=== PATIENT | male | born 1960 | race African-American/Black ===

== ENCOUNTER 2019-02-22 18:18 | Inpatient (IN) ==
[2019-02-22] MEDS ORDERED: LASIX IV ONE (20:11)
[2019-02-22] MEDS ORDERED: CARDIZEM IV ONE ×2 (20:11→21:00)
[2019-02-22] MEDS ORDERED: ROCEPHIN 1 GM in NS 50 ML IV ONE (20:13)
[2019-02-22 20:47] LABS: URINE SOURCE CATH
[2019-02-22 20:50] LABS: BASO# 0.01 X1000 (0.0-0.2); BASO% 0.1 % (0.0-0.8); EOS# 0.03 X1000 (0.0-0.7); EOS% 0.2 % (0.0-10.0); HEMATOCRIT 46.5 % (42.0-52.0); HEMOGLOBIN 15.9 g/dL (14.0-18.0); IMM GRAN# 0.08 X1000 (0.0-0.04); IMM GRAN% 0.5 % (0.0-0.5); LYMPH# 2.08 X1000 (1.2-3.4); MCH 27.8 PG (27-31); MCHC 34.2 g/dL (33-37); MCV 81.3 FL (81-99); MONO# 0.95 X1000 (0.11-0.59); MONO% 6.4 % (1.7-9.3); MPV 11.9 FL (7.4-10.4); NEUT# 11.76 X1000 (1.4-6.5); NEUT% 78.8 % (42.2-75.2); PLT 246 X1000 (130-400); RBC 5.72 XMIL (4.7-6.1); RDW 16.6 % (11.5-14.5); WBC 14.91 X1000 (4.8-10.8)
[2019-02-22 20:52] LABS: BILIRUBIN URINE NEGATIVE (NEGATIVE); BLOOD URINE MODERATE (NEGATIVE); COLOR YELLOW; GLUCOSE URINE NEGATIVE (NEGATIVE); KETONE URINE NEGATIVE (NEGATIVE); LEUKOCYTES URINE LARGE (NEGATIVE); NITRITE URINE POSITIVE (NEGATIVE); PROTEIN URINE 30 mg/dL (NEGATIVE); SP GRAVITY URINE 1.014; TURBIDITY URINE HAZY (CLEAR); UROBILINOGEN URINE 2 mg/dL (NORMAL)
[2019-02-22 20:53] LABS: UR EPITHELIAL CELLS <10 /HPF (<10); URINE BACTERIA 4+ /HPF; URINE WBC TNTC /HPF (<10)
[2019-02-22 21:03] LABS: AGAP 14; ALB/GLOB RATIO 0.8; ALBUMIN 3.1 g/dL (3.5-5.0); ALKALINE PHOSPHATASE 340 U/L (32-122); BUN 23 mg/dL (8-22); CALCIUM 8.7 mg/dL (8.8-10.2); CHLORIDE 100 mmol/L (98-107); COSMO 276; CREATININE 1.2 mg/dL (0.7-1.2); ESTIMATED GFR > 60; GLUCOSE 109 mg/dL (70-104); GOT 44 U/L (10-34); GPT 44 U/L (10-44); POTASSIUM 4.7 mmol/L (3.5-5.1); SODIUM 136 mmol/L (136-145); TCO2 22 mmol/L (25-35); TOTAL BILIRUBIN 2.85 mg/dL (0.20-1.00); TOTAL PROTEIN 6.8 g/dL (6.3-8.3)
[2019-02-22] MEDS ORDERED: NITROGLYCERIN TOP ONE (21:28)
[2019-02-22] MEDS ORDERED: NITROGLYCERIN ONE (21:28)
--- NOTE | 2019-02-22 22:02 | PROVIDER DOCUMENTATION ---
This chart was entered by Joyce Banuelos Scribe, acting as scribe for Amy Mccollum MD. HPI-General Adult - General Chief Complaint: Edema Stated Complaint: LEAKING FLUIDS Time Seen by Provider: 02/22/19 19:23 Source: patient Allergies/Adverse Reactions: Patient Allergies Allergy/AdvReac Type Severity Reaction Status Date / Time No Known Allergies Allergy Verified 02/22/19 21:53 - History of Present Illness -Gen Adult Nature of Presenting Problems: Pt is 58/M presenting to ED w/ Edema to both legs since Sep. Pt has been living in [place] and just flew back. Pt sts that he has pain in both legs with ambulation. He was dx w/ CHF, but does not know the cause. Pt does have medications, but does not know what they are, because everything is written in [place]ian, he does know that he takes a lasix. report SOB, orthopnea 4 pillows. denies chest pain or dizziness. Location of Pain/Injury: reports: lower extremity. denies: chest Pain Radiation: reports: no radiation Quality of Pain: reports: aching Severity: reports: moderate Onset/Duration: reports: gradual Timing: reports: still present, getting worse Context/Activities at Onset: reports: none Modifying Factors: improves with: nothing Associated Symptoms: denies: chest pain, cough, nausea, shortness of breath, vomiting Similar Symptoms Previously?: Yes Recently seen or treated by another doctor?: No Review of Systems - Adult - REVIEW OF SYSTEMS - ADULT Constitutional: denies: chills, fever Eyes: reports: no symptoms reported Ears, Nose, Mouth & Throat: reports: no symptoms reported Cardiovascular: reports: see HPI Respiratory: reports: dyspnea on exertion, shortness of breath Gastrointestinal: reports: no symptoms reported Genitourinary: reports: no symptoms reported Musculoskeletal: reports: no symptoms reported Integumentary: reports: no symptoms reported Neurological: reports: no symptoms reported. denies: dizziness/vertigo, headache/migraines Psychiatric: reports: no symptoms reported Past History - Adult - PAST MEDICAL HISTORY-ADULT Review of Records: reports: Old Records Reviewed, Nursing Assessment Review, Medications Reviewed, Social history reviewed & non-contributory. Cardiovascular: reports: CHF, HTN Neurological: reports: denies history Psychiatric: reports: denies history Endocrine/Immune: reports: denies history Other Conditions: reports: denies history - SOCIAL HISTORY Smoking: denies, non-smoker Substance Use: none/never Alcohol Use Frequency: never Living Situation: family Physical Exam-General - PHYSICAL EXAM-ADULT Initial Vital Signs Reviewed: Yes - CONSTITUTIONAL General Appearance: alert, mild distress - EYES Eyes: PERRL/EOMI, pink conjunctivae - HEAD, EARS, NOSE, MOUTH & THROAT HENMT: normocephalic/atraumatic, moist mucous membranes, normal ENT inspection - NECK Neck: full range of motion, supple - RESPIRATORY Respiratory: lungs clear, normal breath sounds - CARDIOVASCULAR Cardiovascular: tachycardia, irregularly irregular - GASTROINTESTINAL (ABDOMEN) Abdominal Exam: normal bowel sounds, non tender, soft - MUSCULOSKELETAL Extremity: normal range of motion, non-tender, normal gait, pedal edema, other (3+ Edema,up to lower ABD) - SKIN Integumentary: normal color, other (lesion RLE with slight discharge) - NEUROLOGIC Neurologic: grossly normal - PSYCHIATRIC Psych/Mental Status: normal thought content, normal thought process, oriented x 3 Progress - PLAN OF CARE/RESULTS Progress/Plan/Lab Results: Vital Signs - 8 hr 02/22/19 18:32 Temperature 97.4 F L Pulse Rate 70 Respiratory Rate 20 Blood Pressure 115/83 O2 Sat by Pulse Oximetry 98 Orders Category Date Time Status BNP [PRO B-NATRIURETIC PEPTIDE] Stat Lab 02/22/19 20:11 Uncollected CBC WITH ELECTRONIC DIFF [HEME] Stat Lab 02/22/19 20:11 Uncollected COMPREHENSIVE METABOLIC PANEL [CHEM] Stat Lab 02/22/19 20:11 Uncollected LACTATE, PLASMA [CHEM] Stat Lab 02/22/19 20:11 Uncollected Diltiazem [Cardizem] Med 02/22/19 20:11 Discontinued 20 mg IV NOW ONE Furosemide [Lasix] Med 02/22/19 20:11 Discontinued 40 mg IV NOW ONE Cardizem x2 given and HR improved from 140s to 90s. Rocephin started to cover for UTI and possbile wound infection. Laisx IV given for fluid overload. will admit for further management. Result Diagrams: 02/22/19 20:15 02/22/19 20:15 - EKG 1 Time of EKG reading by physician:: 20:19 EKG Read and Signed by:: Amy Mccollum EKG Interpretation (*Must complete 3 of following elements*): Abnormal (Atrial fibrillation with rapid ventricular response with premature ventricular or aberrantly conducted complexes, Possible inferior infarct, age undetermined. Cannot rule out Anterior infarct, age undetermined, Abnormal ECG) Rate: 139 Rhythm: Atrial fibrillation [place]: normal QRS: normal - CONSULTS/PCP/HOSPITALIST Notification #1 *Consult/PCP/Hospitalist*: Dr. Shrestha Time Discussed: 21:38 (Pt admitted for CHF exacerbation) Consult Disposition: Admit Departure - Departure Date of Disposition Decision: 02/22/19 Time of Disposition Decision: 21:38 DIAGNOSIS: Atrial fibrillation with RVR, Skin infection CHF exacerbation Qualifiers: Heart failure type: unspecified Qualified Code(s): I50.9 - Heart failure, unspecified UTI (urinary tract infection) Qualifiers: Urinary tract infection type: site unspecified Hematuria presence: with hem aturia Qualified Code(s): N39.0 - Urinary tract infection, site not specified; R31.9 - Hematuria, unspecified Disposition: ADMITTED INPATIENT 09 Certified Medical Emergency: Emergent Condition: Serious Referrals and Follow-Ups: None,PCP [Primary Care Provider] - - Critical Care Note This patient required my direct & personal management of CC.: No Attestation - Physician/ WILBERT Attestation Patient care was provided by Advanced Practice Provider:: No The physician spent face to face time with patient:: Yes Advanced Practice Provider documentation review:: Supervising physician onsite and consulted in the evaluation and care of this patient. The physician did have a face to face encounter with the patient. This chart was documented by the indicated scribe, (Joyce Banuelos Scribe) and accurately reflects the services I performed and decisions made by me, Amy Soto MD, as attested by the provider's signature.
[2019-02-22 22:25] LABS: ALLEN TEST YES; BE -0.6 mmoll (-3.0-3.0); BLOOD TYPE ARTERIAL; HCO3-(ACT) 24.4 mmoll (20.0-26.0); METHB 1.3 % (0.0-1.5); O2(CT) 21.4 mL/dL (15.0-23.0); O2HB 96.3 % (95.0-99.0); PCO2(98.6) 29 mmHg (35-45); PO2(98.6) 113 mmHg (60-100); SAMPLE BLOOD; SAO2 99.7 % (95.0-100.0); THB 15.7 g/dL (11.5-17.4); pH(98.6) 7.48 (7.35-7.45)
[2019-02-22 22:26] LABS: MODALITY CANNULA
--- NOTE | 2019-02-23 00:14 | HISTORY AND PHYSICAL ---
PRIMARY CARE PHYSICIAN: None, was in [place]. CHIEF COMPLAINT: Lower extremity edema. HISTORY OF PRESENTING ILLNESS: A 58-year-old male with a history of CHF who apparently had been living in [place]. He was being treated there. However, he did not know exactly what he was being treated for except that he had heart failure. Subsequently, patient took a plane from [facility] to the [facility] and immediately after he landed came to the emergency department. In the ED,he was evaluated. He seemed to be in heart failure and also was in atrial fibrillation. Due to these presenting symptoms, he will need admission for further management. The patient is a poor historian. However, at the time of my examination he had denied any headache, fever, chills, chest pain, hemoptysis, but complained of lower extremity edema and shortness of breath. PAST MEDICAL HISTORY: CHF. PAST SURGICAL HISTORY: Hernia repair, jaw surgery. ALLERGIES: No known drug allergies. CURRENT MEDICATIONS: He does not recall and nursing staff will reconcile. SOCIAL HISTORY: No history of smoking. Admits to social alcohol use. Denies any illicit drug use. FAMILY HISTORY: No history of coronary disease. REVIEW OF SYSTEMS: Fourteen point review of systems as listed in HPI. Other systems negative. PHYSICAL EXAMINATION: GENERAL: Cooperative, friendly male. He is resting more comfortably now. VITAL SIGNS: Temperature 97.4 degrees, pulse 70, respirations 20, blood pressure 115/83. HEENT: Atraumatic, normocephalic. Extraocular movements intact. PERRLA. NECK: No masses. CHEST: Bibasilar rales. CARDIOVASCULAR: Regular rate and rhythm. ABDOMEN: Soft, obese, positive bowel sounds. EXTREMITIES: +3 edema. NEUROLOGIC: He is awake, alert, oriented x3. GENITOURINARY: No bladder distention. SKIN: Warm. LABORATORIES AND STUDIES: UA shows nitrite positive and +4 bacteria. WBCs 14.91, hemoglobin 15.9, hematocrit 46.5, platelets 246,000. Sodium 136, potassium 4.7, chloride 100, CO2 of 22, BUN is 23, creatinine is 1.2, glucose 109. ProBNP is 5090. ASSESSMENT: A 58-year-old male with a history of congestive heart failure who apparently flew from [place] to seek treatment for his lower extremity edema. He was evaluated in the emergency department. He was suspected to be in heart failure and also he was in atrial fibrillation. He was treated with IV Cardizem and he will require admission for further management. 1. Acute congestive heart failure exacerbation, unspecified. 2. Atrial fibrillation with rapid ventricular response. 3. Urinary tract infection. PLAN: 1. We will admit patient to [facility]. 2. Continue to monitor patient on telemetry. Continue with diuresis with Lasix. 3. We will check echocardiogram and consult elevator constructor electric. 4. We will use Cardizem as needed. 5. We will start patient on empiric antibiotics and check urine cultures. 6. Put patient on DVT prophylaxis with heparin. 7. We will continue to follow, and reassess and make further recommendation based on patient's clinical course. cc: Rich Shrestha MD MTDD
[2019-02-23] MEDS ORDERED: HEPARIN SUBQ SCH (01:23)
[2019-02-23 03:56] LABS: INR 1.25; PROTIME 16.7 Seconds (11.0-16.0)
[2019-02-23 03:57] LABS: PTT 29.7 Seconds (22.3-41.8)
[2019-02-23] MEDS: CARDIZEM 125 MG/D5W 125 MG/125 ML IVPB IV SCH ×2 (04:18→15:26)
[2019-02-23 06:04] LABS: BASO# 0.02 X1000 (0.0-0.2); BASO% 0.1 % (0.0-0.8); EOS# 0.02 X1000 (0.0-0.7); EOS% 0.1 % (0.0-10.0); HEMATOCRIT 44.7 % (42.0-52.0); HEMOGLOBIN 15.3 g/dL (14.0-18.0); IMM GRAN# 0.09 X1000 (0.0-0.04); IMM GRAN% 0.5 % (0.0-0.5); LYMPH# 2.17 X1000 (1.2-3.4); LYMPH% 11.3 % (20.5-51.1); MCH 28.4 PG (27-31); MCHC 34.2 g/dL (33-37); MCV 82.9 FL (81-99); MONO# 0.91 X1000 (0.11-0.59); MONO% 4.7 % (1.7-9.3); MPV 11.6 FL (7.4-10.4); NEUT# 15.99 X1000 (1.4-6.5); NEUT% 83.3 % (42.2-75.2); PLT 191 X1000 (130-400); RBC 5.39 XMIL (4.7-6.1); RDW 16.6 % (11.5-14.5)
[2019-02-23 06:29] LABS: AGAP 13; BUN 22 mg/dL (8-22); CALCIUM 8.5 mg/dL (8.8-10.2); CHLORIDE 102 mmol/L (98-107); COSMO 280; ESTIMATED GFR > 60; GLUCOSE 152 mg/dL (70-104); POTASSIUM 4.1 mmol/L (3.5-5.1); SODIUM 137 mmol/L (136-145); TCO2 22 mmol/L (25-35)
--- NOTE | 2019-02-23 07:25 | Diag Imaging Result Doc PS360 ---
EXAM: CHEST-1 VIEW 02/22/2019 HISTORY: SEPSIS PROTOCOL TECHNIQUE: AP portable at 2203 COMMENT: There is cardiomegaly. There is alveolar opacity in the right lower lobe with blunting of the right costophrenic angle. There are no previous studies. IMPRESSION: Cardiomegaly. Right lower lobe pneumonia. Right pleural effusion. Electronically signed by Anastacio Tracy 02/23/2019 7:23 AM
[2019-02-23] MEDS: LASIX IV SCH ×2 (09:18→20:22)
[2019-02-23] MEDS ORDERED: LOVENOX 1 MG/KG SUBQ SCH (12:00)
--- NOTE | 2019-02-23 12:15 | CARDIOLOGY CONSULTATION ---
DATE: 02/23/2019 REQUESTING PHYSICIAN: Hospitalist Service REASON FOR CONSULTATION: Congestive heart failure, atrial fibrillation. Chief complaint: dyspnea, swelling. HISTORY OF PRESENT ILLNESS: Mr. Dunbar is a very pleasant 58-year-old black gentleman who has come from [facility] seeking medical assistance. 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 He says that about 09/2018 and when he was doing his usual exercise routine, he had an episode of significant discomfort in the upper abdomen epigastric area, and he basically collapsed on the ground. He ended up being admitted to the hospital where they initiated treatment for him. He, over the course of the months, has developed swelling of his lower extremities, and this has gotten progressively worse. He was taking a number of medications which we have been able to figure out using the it application development manager apps available to the nursing staff. At any rate, he has been treated for heart failure, and he did not seem to get better, and that is why he decided to come back to the [facility] for evaluation. PAST SURGICAL HISTORY: Positive for UPPP in the past. He has been diagnosed with sleep apnea syndrome. At some point, they have found that he is hypertensive. Also, he says that his weight has fluctuated over the years. When he was at his very best, his weight was 154 pounds, and now he is about 260 pounds. SOCIAL HISTORY: He has been to his for 30 years. He has 4 children living in [facility]. FAMILY HISTORY: He is 1 of a total of 6 siblings. Nobody has any significant history of heart disease. Mother is in the room with him. She is not a heart patient. Father did not suffer heart attack. HOME MEDICATIONS: From what we have been able to figure out included enalapril 2.5 daily, furosemide 40 daily, Levaquin 500 daily and spironolactone 25 mg daily. REVIEW OF SYSTEMS: Lately he has developed swelling and also skin breakdown in the leg. His legs hurt. He is weak. He is really very short of breath and very limited to perform physical activity. He has not experienced chest pains. No hearing or visual problems. No genitourinary disorder. No gastrointestinal issues. No musculoskeletal problems. No psychiatric or neurological issues other than the original episode of syncope in 09/2018. No hematological issues. No history of cancer. PHYSICAL EXAMINATION: Blood pressure is 108/81, temperature 98 degrees, pulse 101, respirations 16. He is awake, alert, oriented, in no distress. HEENT: Some prominence of jugular veins. Chest: Diminished breath sounds diffusely. Heart sounds are irregularly irregular without a gallop or murmur. Abdomen is distended with ascites. Extremities showed 3 to 4 plus edema. He has anasarca edema. Neurologic: Follows commands, moves all 4 extremities. DIAGNOSTIC DATA: His blood work shows sodium 137, potassium 4.1, BUN is 22, creatinine 1.0, magnesium 2.0. His white cell count is 19,200, hemoglobin 15.3, hematocrit 44.7. His urinalysis is abnormal with moderate blood, positive nitrites, too numerous to count WBCs. EKG shows atrial fibrillation with a rate of 97 beats per minute with PVCs and surprisingly low voltage with diffuse T wave abnormality. His chest x-ray on admission shows cardiomegaly, right lower lobe pneumonia. IMPRESSION: 1. The patient presents with what appears to be more than likely systolic and diastolic heart failure, chronic. 2. Persistent atrial fibrillation. 3. Abnormal liver function tests with significant elevation of alkaline phosphatase and bilirubin. That suggests a space occupying lesion. 4. Abnormal urinalysis. 5. Obesity. 6. History of sleep apnea syndrome. RECOMMENDATIONS: At this point in time, we will get an echocardiogram. We will do ultrasound of the legs. We really need to investigate for possible cardiomyopathy secondary to infiltrative disease like TTR amyloid or hemochromatosis or anything along those lines. I will order blood work, and we will take if from there. Further advice will be forthcoming. Thank you for the opportunity to participate in his evaluation. cc: Kareem Salazar MD [facility] CENTERNadia
[2019-02-23] MEDS: LOVENOX SUBQ SCH (12:45)
[2019-02-23] MEDS ORDERED: LANOXIN PO ONE (13:39)
[2019-02-23] MEDS ORDERED: PRINIVIL PO ONE (13:42)
[2019-02-23] MEDS ORDERED: ALDACTONE PO ONE (13:45)
--- NOTE | 2019-02-23 14:29 | PROGRESS NOTE ---
DATE: 02/23/2019 Today Mr. Dunbar refers to be doing fairly the same. Still has some shortness of breath, but no chest pain. OBJECTIVELY: Vital Signs: Blood pressure is 131/86, pulse of 85, respirations 16, temperature 98.5 degrees. General: Mr. Dunbar is a 58-year-old gentleman. He is in bed, no distress. HEENT: Mucosa is pink and moist. Anicteric. Acyanotic. Neck: Supple. Positive JVD. Chest: Air entry is bilaterally reduced. There are wet crackles in both posterior lung dumont. Cardiovascular: Irregularly irregular. Rate seems to be controlled. There is positive S3. Abdomen: Soft, distended. There is a positive hepatojugular reflux and mildly tender hepatomegaly. Extremities: About 4+ pedal edema. DECK ENGINE OPERATOR: Patient is awake, alert, and oriented. LABORATORY DATA: WBC is 19.2. Chemistry is also reviewed. Uric acid is 10.9. C-reactive protein is 59.16. Lactate is slightly elevated and 2.9. Urinalysis showing a gram-negative daniel UTI. ASSESSMENT: 1. Anasarca, most likely secondary to congestive heart failure with reduced ejection fraction. We are still waiting for the echo. 2. Persistent atrial fibrillation. The patient presented with rapid ventricular response. The rate is better controlled. He was given diltiazem. However, because of the suspicion off systolic dysfunction, I think it will be reasonable to switch to digoxin and wait for further recommendation from Cardiology. 3. Newly diagnosed DVT in the left lower extremity. The patient is on therapeutic Lovenox. 4. Elevated plasma lactate level likely as a reflection of hypoperfusion because of the poor ejection fraction. The patient does have some cold lower extremities and I think he will probably benefit some from ionotropic therapy. We will however defer that to Cardiology. 5. Hyperuricemia. The patient has been started on allopurinol. 6. Questionable right lower lobe pneumonia. The patient is on antimicrobial therapy. 7. Gram-negative daniel urinary tract infection. We will continue with ceftriaxone. 8. History of hypertension, stable. So in general Mr. Dunbar has anasarca which we think is secondary to congestive heart failure, presumably with reduced ejection fraction. We are still waiting on the echo. He has been started on digoxin, lisinopril, and he is getting diuretic therapy. We have added spironolactone to enhance diuresis and also for the congestive heart failure. We will follow further recommendations from Cardiology. cc: Jase Mortensen MD
--- NOTE | 2019-02-23 15:08 | Diag Imaging Result Doc PS360 ---
EXAM: US ABDOMEN-COMPLETE 02/23/2019 HISTORY: abnormal LFT's TECHNIQUE: Abdominal ultrasound COMMENT: The study is technically suboptimal and the left upper quadrant including the left kidney and spleen are not well demonstrated. The visualized portions of the aorta and inferior vena cava are within normal limits. There is a right pleural effusion. There is sludge in the gallbladder. There is no evidence of biliary dilatation the common bile duct measuring less than 3 mm. There is tenderness over the gallbladder. There is antegrade flow in the portal vein. The right kidney is without evidence of hydronephrosis or mass. The liver is slightly hyperechoic suggesting fatty change. IMPRESSION: Possibility of cholecystitis cannot be excluded. There is sludge in the gallbladder. Hepatic steatosis. Electronically signed by Anastacio Tracy 02/23/2019 3:06 PM
--- NOTE | 2019-02-23 15:27 | Diag Imaging Result Doc PS360 ---
EXAM: CT THORAX W/O CONTRAST 02/23/2019 HISTORY: abnormal Chest X Ray TECHNIQUE: This exam was performed using automated exposure control, adjustment of mA or kV according to patient size, and/or use of iterative reconstruction technique. COMMENT: There is a fairly large right pleural effusion. There is subcutaneous edema. There is atelectasis or pneumonia in the right lower lobe. There are calcified nodes in the right paratracheal and hilar regions. There is cardiomegaly. There is a small pericardial effusion. There are atherosclerotic calcifications in the thoracic aorta the ascending aorta is slightly distended to over 4.3 cm. There are calcifications in the left anterior descending artery. There are chronic posttraumatic changes in the right humerus. There is no evidence of acute bony abnormality. IMPRESSION: 1. Anasarca. 2. Large right pleural effusion. 3. Atelectasis versus pneumonia in the right lower lobe. Electronically signed by Anastacio Tracy 02/23/2019 3:24 PM
--- NOTE | 2019-02-23 17:48 | ECHO REPORT ---
ORDER DATE: 02/23/2019 INDICATION: CHF, atrial fibrillation. M-MODE MEASUREMENTS: Left ventricle end diastole: 3.1. Left ventricle end systole: 5.1. Posterior wall: 0.9. Interventricular septum: 1.1. Left atrium: 5.1. Aortic diameter: 2.9. SUMMARY OF 2-DIMENSIONAL IMAGIN. The left ventricle is enlarged. Global left ventricular systolic function is severely impaired. There appears to be akinesis of the inferior wall as well as the interventricular septum and the apex of the left ventricle. Global ejection fraction is somewhere in the neighborhood of 20%. There is evidence of an apical thrombus that appears to be somewhat mobile with a hypodense core. This mass measures 2.9 x 2.9 cm in maximum dimensions. 2. The left atrium is significantly dilated. 3. The mitral valve shows a moderate degree or regurgitation. The patient is in atrial fibrillation. 4. Pulsed wave Doppler of mitral inflow shows a single filling wave. 5. Diastolic function is presumably significantly impaired. It cannot be properly evaluated. 6. The pulmonic valve shows a moderate degree of regurgitation. 7. The pulmonary systolic pressure is estimated at 50 mmHg. The pulmonary diastolic pressure is estimated to be somewhere in the neighborhood of 30 mmHg. 8. The right atrium is also significantly dilated. The right ventricle is moderately enlarged. It appears to be mildly to moderately hypokinetic. 9. The aortic valve has 3 cusps. They open normally. Color flow mapping indicates a mild degree of regurgitation. 10.The tricuspid valve shows a moderate degree of regurgitation. Pulmonary systolic pressure, as I said, is estimated at 50 mmHg. 11.There is no pericardial effusion. 12.The study was clinically difficult. SUMMARY: This study shows: 1. Significantly impaired left ventricular systolic function with ejection fraction of 20% with evidence of an apical thrombus measuring 2.9 x 2.9 cm. 2. Pulmonary hypertension estimated at 50/30 mmHg. 3. Moderate degree of mitral and tricuspid regurgitation. 4. Mild degree of aortic regurgitation. 5. Significantly enlarged atria. The patient is in atrial fibrillation. Clinical correlation is strongly recommended. cc: MD Rich Meyer MD
[2019-02-23] MEDS ORDERED: ROCEPHIN 1 GM in NS 50 ML IV SCH (21:00)
[2019-02-23] MEDS: ZYLOPRIM PO SCH (21:26)
[2019-02-23] MEDS: COLCRYS PO SCH (21:26)
[2019-02-23] MEDS: PRINIVIL PO SCH (21:26)
[2019-02-24] MEDS: CARDIZEM 125 MG/D5W 125 MG/125 ML IVPB IV SCH (04:27)
[2019-02-24] MEDS: LOVENOX SUBQ SCH ×2 (05:18→18:30)
[2019-02-24 06:16] LABS: BASO# 0.01 X1000 (0.0-0.2); BASO% 0.1 % (0.0-0.8); EOS# 0.07 X1000 (0.0-0.7); EOS% 0.5 % (0.0-10.0); HEMATOCRIT 42.7 % (42.0-52.0); HEMOGLOBIN 14.5 g/dL (14.0-18.0); IMM GRAN# 0.06 X1000 (0.0-0.04); IMM GRAN% 0.4 % (0.0-0.5); LYMPH# 1.84 X1000 (1.2-3.4); LYMPH% 13.3 % (20.5-51.1); MCH 28.2 PG (27-31); MCV 82.9 FL (81-99); MONO# 0.54 X1000 (0.11-0.59); MONO% 3.9 % (1.7-9.3); MPV 11.5 FL (7.4-10.4); NEUT# 11.28 X1000 (1.4-6.5); NEUT% 81.8 % (42.2-75.2); PLT 218 X1000 (130-400); RBC 5.15 XMIL (4.7-6.1); RDW 16.5 % (11.5-14.5)
[2019-02-24 06:31] LABS: AGAP 11; ALBUMIN 2.6 g/dL (3.5-5.0); BUN 17 mg/dL (8-22); CALCIUM 8.4 mg/dL (8.8-10.2); CHLORIDE 101 mmol/L (98-107); COSMO 284; CREATININE 0.9 mg/dL (0.7-1.2); ESTIMATED GFR > 60; GLUCOSE 113 mg/dL (70-104); IRON SATURATION 11 %; PHOSPHORUS 2.6 mg/dL (2.7-4.5); POTASSIUM 3.6 mmol/L (3.5-5.1); SODIUM 141 mmol/L (136-145); TCO2 29 mmol/L (25-35); TIBC 213 ug/dL; TOTAL IRON 24 ug/dL (53-167); UNBOUND IRON 189 ug/dL (112-346)
[2019-02-24] MEDS: LASIX IV SCH ×2 (08:42→20:35)
[2019-02-24] MEDS: PRINIVIL PO SCH ×2 (08:42→20:35)
[2019-02-24] MEDS: LANOXIN PO SCH (08:42)
[2019-02-24] MEDS: APRESOLINE PO SCH ×3 (08:42→16:54)
[2019-02-24] MEDS: COLCRYS PO SCH ×2 (08:43→20:35)
[2019-02-24] MEDS: ISORDIL PO SCH ×3 (08:43→16:54)
[2019-02-24] MEDS: ZYLOPRIM PO SCH ×2 (08:43→20:35)
[2019-02-24] MEDS ORDERED: PRINIVIL PO SCH (09:00)
[2019-02-24] MEDS ORDERED: ALDACTONE PO SCH (09:00)
[2019-02-24] MEDS ORDERED: MERREM 1 GM in NS 50 ML IV SCH (09:15)
[2019-02-24 09:16] LABS: BANDS 2 % (0-1); LYMPHS 8 % (21-51); SEGS 90 % (42-75)
--- NOTE | 2019-02-24 13:37 | CARDIOLOGY PROGRESS NOTE ---
DATE: 02/24/2019 CHIEF COMPLAINT: Swelling, dyspnea. SUBJECTIVE: Mr. Dunbar is feeling somewhat better today. He is not having chest pain. Breathing is more comfortable. He is diuresing well. He is currently on furosemide 40 mg every 12 hours. OBJECTIVE: Blood pressure is 100/76, temperature 97.5, pulse 97, respirations 20. He is awake, alert and oriented, no distress. HEENT: Some jugular venous distention. Chest: Diminished breath sounds at the bases. Heart sounds are irregularly irregular. Abdomen: Distended, obese. He does have anasarca edema in both lower extremities. Neurologic: Follows commands. Moves all 4 extremities. DIAGNOSTIC DATA: He is growing E. coli in the urine, and he has gram-negative rods from the skin. Blood work shows sodium is 141, potassium 3.6, BUN is 17, creatinine 0.9. Albumin is down to 2.6. Phosphorus 2.6. Iron is 24, saturation is 11%. IMPRESSION: 1. The patient presented with anasarca edema, dyspnea, consistent with advanced congestive heart failure. Echocardiogram reveals that his ejection fraction is below 30% with an apical thrombus. He is really [place] Heart [employer] class 4. The etiology of his cardiomyopathy is unclear. It could be coronary or nonischemic. This has to be elucidated down the road. 2. Deep venous thrombosis of left leg. 3. Obesity. 4. History of sleep apnea syndrome. 5. Permanent or persistent atrial fibrillation. RECOMMENDATIONS: At this time, we will continue with basic heart failure management with lisinopril, spironolactone, digoxin, hydralazine, isosorbide dinitrate, furosemide. Because of elevated uric acid, we have added colchicine and allopurinol. We will see how things go. Eventually he is going to need a workup for ischemic heart disease including a myocardial perfusion study and probably and right and left heart catheterization. Because of the active blood clot in the leg and also the clot found in his heart, we have to keep him fully anticoagulated for a while. We have chosen enoxaparin 100 mg twice a day because we believe that dose is closer to his expected "dry" weight. Further advice will be forthcoming. cc: Kareem Salazar MD
--- NOTE | 2019-02-24 14:18 | PROGRESS NOTE ---
DATE: 02/24/2019 SUBJECTIVE: This morning, Mr. Dunbar refers to be doing well. He has been making adequate urine. Still has some residual shortness of breath. Denies any chest pain. Mother, sister, and then a niece were all at the bedside at the time of the encounter. OBJECTIVE: Vital Signs: Blood pressure is 100/76, pulse of 97, respirations are 20, temperature is 97.5 degrees, the patient is saturating 97% on 3 L. General Examination: Mr. Dunbar is a 58- year-old, -German male. He is in bed. No seemingly distressed. HEENT: Mucosa is pink and moist. Anicteric. Acyanotic. Neck: Supple. Positive JVD. Chest: Air entry is bilaterally reduced. There are still some crackles in the posterior lung dumont. Cardiovascular: Irregularly irregular, rate controlled. There is positive S3. GI: Abdomen is soft, it is distended. There is positive hepatojugular reflux and there is edema all around the lateral aspect of the abdominal wall. Extremities: About 4+ pedal edema. : Julio catheter is in place. 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 Laboratory Data: WBC is down to 13.80, hemoglobin is 14.5, platelet count of 218,000. Chemistry is also reviewed and it is completely unremarkable. So far, a wound culture on the left leg is showing gram-negative daniel. Blood cultures, two out of two, showing gram-negative daniel. Urine has shown ESBL E. coli. Imaging Studies that were done yesterday including an ultrasound of the abdomen shows possibility of cholecystitis cannot be excluded. There was sludge in the gallbladder. There is hepatic steatosis. A CT scan of the chest shows a large, right-sided pleural effusion. There was atelectasis versus pneumonia in the right lower lobe. The patient's Is and Os, urine output was 4425. It is currently negative balance of 3680. An echocardiogram did show ejection fraction of 20% with evidence of apical thrombus, pulmonary hypertension. ASSESSMENT: 1. Anasarca secondary to congestive heart failure. Patient is on diuretic management. 2. Severe advanced congestive heart failure with reduced ejection fraction (ejection fraction of 20%). Etiology is unclear. Patient will need an ischemic workup when he euvolemic. 3. Atrial fibrillation with rapid ventricular response. This is better controlled. The patient is currently on diltiazem. He is also on Lovenox for stroke prophylaxis. 4. Questionable right lower lobe pneumonia. Patient is on antimicrobial therapy. 5. Extended-spectrum B-lactamase urinary tract infection. We have changed the current antimicrobial for meropenem to cover for the extended-spectrum B-lactamase. 6. Gram-negative daniel bacteremia, presumably from the urine tract infection. We are pending the identification and sensitivity. 7. Newly diagnosed deep venous thrombosis of the left lower extremity. The patient is on therapeutic Lovenox. 8. Hypertension, is controlled. 9. Gallbladder sludge with possible cholecystitis. For now, we are going to continue with antimicrobial therapy. When patient is more stable, we will get surgery to evaluate. 10. Hepatic steatosis noted on imaging. PLAN: In general, Ms. Dunbar is remarkably sick. He has an advanced, severely dilated cardiomyopathy with acute exacerbation of congestive symptoms. He is also septic with gram- negative daniel bacteremia. He has ESBL E. coli in the urine and his echocardiogram seems to suggest some thrombosis in the left ventricle apex. We will continue with the diuretic therapy for now and all his other heart medications. He is also on antimicrobial therapy. We have switched to carbapenem because of the ESBL and we will pending the ID and sensitivity on the gram negative daniel. We will also get ID to see him. cc: Jase Mortensen MD
--- NOTE | 2019-02-24 15:39 | INFECTIOUS DISEASE CONSULT REP ---
DATE: 02/24/2019 CONCLUSION: The patient has an extended spectrum beta lactamase producing E coli urinary tract infection. The patient has gram-negative rods in his blood culture, which most likely will be the same organism that is in the urine. Also, the patient has leg wounds and one of the wounds also has gram-negative rods in it and again, I think the gram-negative daniel will be the same one that is in the urine. The patient on the abdominal ultrasound showed that he may have possible cholecystitis. The patient has on CT scan a right lower lobe atelectasis versus pneumonia. RECOMMENDATIONS: I have switched the patient from meropenem to ertapenem. I have ordered a CT renal stone search and I have also ordered a HIDA scan to check for the possibility of cholecystitis. I agree with Dr. Mortensen ordering a procalcitonin level. DISCUSSION: The patient tells me that he came in the hospital because he had been short of breath for the past [address] scan of the chest shows anasarca, right pleural effusion and a right lower lobe atelectasis versus pneumonia. The patient's CT scan of the chest shows anasarca, a right pleural effusion and a right lower lobe atelectasis versus pneumonia. Abdominal ultrasound shows possible cholecystitis and a fatty liver. The patient's urine culture grew out an extended spectrum beta lactamase producing E coli and the patient's blood and right leg wound are growing out gram-negative rods. CBC shows a white count of 13,800, hemoglobin 14.5, platelet count 218,000. Creatinine is 0.9. GFR is greater than 60.. PAST MEDICAL HISTORY/REVIEW OF SYSTEMS: Eyes and ears: He does not have any problems seeing or hearing. Neck: No stiffness. Respiratory: See present illness. The patient says he has been short of breath for the past 5 months. He is not coughing. Cardiac: No chest pain or palpitations. GI: No nausea, vomiting, or diarrhea. : No dysuria or flank pain. Neurologic: No seizures. No loss of motor or sensory function. PREVIOUS HOSPITALIZATIONS AND OPERATIONS: Patient has had a fractured jaw and he also has had a hernia repair. MEDICAL DISEASES: Positive for hypertension and congestive heart failure. INFECTIOUS DISEASE HISTORY: Negative for pneumonia and UTI prior to the patient's the current urinary tract infection. FAMILY HISTORY: Positive for cancer, hypertension and diabetes. SOCIAL HISTORY: The patient lives in [facility]. He is . 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 He does not have any drug allergies. He does not smoke cigarettes, drink alcoholic beverages or abuse drugs. HOME MEDICATIONS: Include Vasotec, Lasix, Levaquin and spironolactone. PHYSICAL EXAMINATION: Vital Signs: Temperature is 97.5 degrees, pulse 97, respirations 20, blood pressure 100/76. Patient is 5 feet 10 inches tall, weighs 255 pounds. General: This is an obese, middle-aged male. He does not appear to be in any acute distress, lying in bed. Head/eyes/ears/nose/throat: He can hear my spoken words and see near objects. He does not have any white patches in his mouth. Neck: No meningismus. Lungs: Clear to auscultation. Cardiovascular: Heart rate is irregular. The patient has bilateral leg edema. Abdomen: Soft and nontender. Extremities: The patient has wounds on the anterior lower part of both legs. The wounds are not purulent or erythematous. Neurologic: The patient is alert. He is able to ambulate. There is no tremor. His sensation is intact to touch. His memory as regarding his medical history was decreased. Integument: No rashes. Thank you for the consult. cc: Ish Pickett MD MTDD
[2019-02-24] MEDS: ALDACTONE PO SCH (20:35)
[2019-02-24] MEDS: INVANZ 1 GM/NS 1 GM/50 ML IVPB IV SCH (20:36)
--- NOTE | 2019-02-24 21:45 | Diag Imaging Result Doc PS360 ---
EXAM: CT RENAL STONE SEARCH 02/24/2019 HISTORY: UTI TECHNIQUE: This exam was performed using automated exposure control, adjustment of mA or kV according to patient size, and/or use of iterative reconstruction technique. COMMENT: There is a large right pleural effusion with compressive atelectasis of the right lower lobe. There is soft tissue edema particularly in the subcutaneous tissues. There are no apparent gallstones. There is no evidence of hydronephrosis or nephrolithiasis. There is a moderately large amount of stool in the colon. The small bowel is not distended. There is no evidence of abdominal aortic aneurysm. There is stool in the rectosigmoid colon. There is a Julio catheter in the bladder. There is no evidence of appendicitis. The spleen and adrenal glands are not enlarged. There is partial fusion of the left sacroiliac joint. There is no evidence of acute bony abnormality. IMPRESSION: Right pleural effusion and basilar atelectasis. Anasarca. Constipation. No evidence of urolithiasis or obstructive uropathy. Electronically signed by Anastacio Tracy 02/24/2019 9:42 PM
[2019-02-25] MEDS ORDERED: MOTRIN PO ONE (03:49)
[2019-02-25] MEDS: LOVENOX SUBQ SCH ×2 (05:13→17:31)
--- NOTE | 2019-02-25 07:52 | INFECTIOUS DISEASE PROGRESS NO ---
DATE: 02/25/2019 PRESENT ILLNESS: The patient has an extended-spectrum beta lactamase-producing Escherichia coli urinary tract infection. The patient also has a gram-negative daniel bacteremia and a gram-negative daniel infection of his leg. 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 The patient, on ultrasound, was said to possibly have cholecystitis. The patient is to get a HIDA scan today. Also, the patient's first CT scan showed right lower lobe atelectasis versus pneumonia. However, the CT renal stone search that I ordered yesterday mentioned that there was right lower lobe atelectasis, but no pneumonia mentioned. MEDICATIONS: The patient yesterday was switched from meropenem to ertapenem. PHYSICAL EXAMINATION: Vital Signs: Temperature is 97.9, pulse 107, respirations 18, blood pressure 129/86. The patient weighs 255 pounds. General: This is an obese, somewhat ill- appearing, middle-aged male. He is in no acute distress. HEENT: He can hear my spoken words and see near objects. He does not have any white patches on his tongue. Neck: No meningismus. Lungs: Clear to auscultation. Cardiovascular: Heart rate is irregular. Abdomen: Soft and nontender. Neurologic: The patient is awake. He can move his extremities. There is no tremor. Extremities: Bilateral edema. The patient has wounds on the anterior part of the lower legs. Neither one is erythematous or purulent. They do have some serous drainage coming from them. IMAGING AND LABORATORY DATA: There is no CBC back yet for today. The CBC from yesterday shows a white count of 13,800, hemoglobin 14.5, and platelet count of 218,000. The creatinine today is 0.9. GFR is greater than 60. There is no new radiographic study from today, although a HIDA scan has been ordered. ASSESSMENT AND PLAN: The patient has an extended-spectrum beta lactamase- producing Escherichia coli urinary tract infection with most likely an associated bacteremia and infection on the patient's leg. I plan on continuing ertapenem. If the patient does indeed have some pneumonia, the ertapenem should provide good coverage for it, and there would be a likelihood that the pneumonia occurred because the patient's bacteremia hematogenously infected the lung. However, there is a good chance that there is not pneumonia. In any event, a procalcitonin level has been ordered by Dr. Mortensen. As mentioned above, the patient may have cholecystitis, and a HIDA scan has been ordered for today. Suggest sending patient to [facility]. COMORBIDITIES: He has hypertension, he is obese, and he also has congestive heart failure. cc: Ish Pickett MD MTDD
--- NOTE | 2019-02-25 09:06 | EKG Report ---
Test Performed on : 02/23/2019 08:12:24 AM Test Reason : atrial fibrillation Blood Pressure : / mmHG Vent. Rate : 097 BPM Atrial Rate : 416 BPM P-R Int : 000 ms QRS Dur : 082 ms QT Int : 360 ms P-R-T Axes : 000 -15 107 degrees QTc Int : 457 ms Atrial fibrillation. with premature ventricular or aberrantly conducted complexes. Low voltage QRS Cannot rule out Anterior infarct (cited on or before 22-FEB-2019) Abnormal ECG When compared with ECG of 22-FEB-2019 20:18, (Unconfirmed) Nonspecific T wave abnormality no longer evident in Inferior leads Confirmed by Obdulio Michaels MD ([id number]) on 02/26/2019 9:56:51 PM
[2019-02-25] MEDS: LANOXIN PO SCH (09:37)
--- NOTE | 2019-02-25 09:37 | Diag Imaging Result Doc PS360 ---
EXAM: HIDA SCAN W/O EJECT. FRACTION HISTORY: cholecystitis TECHNIQUE: Nuclear medicine HIDA scan COMPARISON: None. FINDINGS: 4.7 mCi Choletec administered. There is normal uptake within the liver. Quick emptying into the small bowel by 30 minutes. Imaging for 90 minutes obtained. No filling of the gallbladder through 90 minutes. Most of the radiopharmaceutical has emptied from the liver at 90 minutes. IMPRESSION: Abnormal exam with no filling of the gallbladder at 90 minutes. Electronically signed by Alec Dugan 02/25/2019 9:35 AM
[2019-02-25] MEDS: ZYLOPRIM PO SCH ×2 (09:38→21:00)
[2019-02-25] MEDS: PRINIVIL PO SCH ×2 (09:38→21:00)
[2019-02-25] MEDS: COLCRYS PO SCH ×2 (09:39→20:59)
[2019-02-25] MEDS: ALDACTONE PO SCH ×2 (09:39→20:59)
[2019-02-25] MEDS: ISORDIL PO SCH ×3 (09:39→17:30)
[2019-02-25] MEDS: LASIX IV SCH ×2 (09:39→21:00)
[2019-02-25] MEDS: APRESOLINE PO SCH ×3 (09:39→17:30)
[2019-02-25] MEDS: CARDIZEM 125 MG in NS 100 ML IV SCH ×2 (09:48→21:48)
--- NOTE | 2019-02-25 11:04 | PROGRESS NOTE ---
DATE: 02/25/2019 SUBJECTIVE: This morning Mr. Dunbar refers to be doing a little better. He thinks his breathing is getting better. The swelling is also getting down gradually. OBJECTIVE: Vital signs: Blood pressure is 117/98, pulse of 115, temperature is 97.5 degrees, respirations 16. Patient is saturating 100% on 2 L. General: Mr. Dunbar is a 58-year-old gentleman. He is in bed no distress. HEENT: Mucosa is pink and moist. Anicteric. Acyanotic. Neck: Supple. There is positive JVD. Chest: Air entry is bilaterally reduced. There are still some crackles posteriorly. Cardiovascular: Irregularly irregular, no murmurs. Abdomen: Soft, distended but nontender. There is positive hepatojugular reflux. There is also edema at the lateral aspect of the abdominal wall. : Julio catheter is in place. Extremities: About 3+ pedal edema. 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 LABORATORY DATA: None for this morning. So far blood cultures continue to show gram-negative daniel was still pending the ID and sensitivity. The urine culture shows ESBL E coli. A HIDA scan of the of the gallbladder shows no filling at all at 90 minutes. ASSESSMENT: 1. Anasarca secondary to congestive heart failure. The patient is on diuretic therapy. Seems to be doing well. 2. Severe advanced congestive heart failure with ejection fraction of 20%. Etiology is unclear. The patient will need ischemic workup at some point when he is euvolemic. Cardiology is on board. 3. Atrial fibrillation with rapid ventricular response, rate control, currently on diltiazem and digoxin. 4. Questionable right lower lobe pneumonia, patient is on antimicrobial therapy. 5. Extended spectrum beta lactamase Escherichia coli urinary tract infection. The patient is on carbapenem. 6. Gram-negative daniel bacteremia presumably from the urinary tract infection. However, we still awaiting the ID and sensitivity. 7. Newly diagnosed thrombosis of the left lower extremity. Patient is on therapeutic Lovenox. 8. Hypertension is controlled. 9. Gallbladder sludge with remarkable abnormal HIDA scan all consistent with chronic cholecystitis. The patient is not currently symptomatic, but we think he would still need to be evaluated by surgery. A consult has been placed. 10. Hepatic steatosis noted. 11. Hyperuricemia. Patient has been started on colchicine and allopurinol. PLAN: So in general Mr. Dunbar seems to be progressively getting better. He is currently negative balance of 6350. He is making adequate urine output and the swelling is coming down. He is on antimicrobial therapy for the UTI and the bacteremia. We will get surgery to evaluate him for the cholecystitis and we will continue with his current care plan. We will [facility] and [facility] to see [facility] they [facility], if they would want to have the patient in their facility. Case Management is working on this and will notify us. cc: Jase Mortensen MD
[2019-02-25] MEDS ORDERED: MIRALAX PO ONE (17:36)
--- NOTE | 2019-02-25 17:51 | CARDIOLOGY PROGRESS NOTE ---
DATE: 02/25/2019 CHIEF COMPLAINT: Patient with swelling and dyspnea. SUBJECTIVE: Mr. Dunbar is breathing much more comfortably. He has had good diuresis. He denies having any significant pain. His abdomen is going down. His legs are not hurting. OBJECTIVE: Blood pressure is 109/78, temperature 97.4, pulse 81, respirations 18. He is awake, alert, in no distress. HEENT: No significant jugular venous distention. Chest: Sounds clearer to auscultation and percussion. Heart sounds are slightly irregular without gallop or murmur. Abdomen: Distended. Question of ascites. Extremities showed 2+ to 3+ edema. Neurologic: Follows commands. Moves all four extremities. IMPRESSION: 1. The patient presented with decompensated congestive heart failure, systolic, plus diastolic. Etiology is unclear. 2. The patient has apical left ventricular thrombus. 3. Deep venous thrombosis of left leg. 4. Right pleural effusion, large. 5. Constipation. 6. History of sleep apnea syndrome. 7. Persistent atrial fibrillation. RECOMMENDATIONS: At this time, we will continue with current therapy that includes enoxaparin, vasodilators, and broad spectrum antibiotics. He is growing a multiresistant Escherichia coli in the urine and also he has a skin gram-negative in the skin breakdown. We will titrate vasodilators as tolerated. The patient may need to apply for VA benefits while he recuperates. He is talking about flying back to [place] and I do not think that would be feasible given his significantly compromised general health status. We will see how things go over the course of the ensuing days. cc: Kareem Salazar MD
[2019-02-25] MEDS: PERICOLACE PO SCH (21:00)
[2019-02-25] MEDS: INVANZ 1 GM/NS 1 GM/50 ML IVPB IV SCH (21:00)
[2019-02-26] MEDS ORDERED: AYR NASAL SPRAY NAS PRN (06:01)
--- NOTE | 2019-02-26 08:52 | INFECTIOUS DISEASE PROGRESS NO ---
DATE: 02/26/2019 PRESENT ILLNESS: The patient has blood cultures positive for Sphingomonas. This could have originated from the patient's gallbladder. The patient's urine has an extended-spectrum beta- lactamase producing Escherichia coli. The patient's leg has an infection with the extended- spectrum beta-lactamase producing Escherichia coli and Raoultella. MEDICATIONS: The patient is on ertapenem. PHYSICAL EXAMINATION: Vital Signs: Temperature is 98.3 degrees, pulse 56, respirations 19, blood pressure 132/89. The patient weighs 255 pounds. Generally: This is an obese, chronically ill middle-aged male. He is in no acute distress. Head, Eyes, Ears, Nose, and Throat: He can hear my spoken words and see near objects. He does not have any white patches in his mouth. Neck: No meningismus. Lungs: Clear to auscultation. Cardiovascular: Heart rate is irregular. Abdomen: Soft and nontender. Neurologic: The patient is alert. He can move his extremities. There is no tremor. Extremities: The patient's wounds on his right leg are not draining hardly at all, and yesterday they were draining a lot of fluid. The legs are edematous. LABORATORY AND X-RAY: There is no new CBC for today. The creatinine is 0.9, GFR is greater than 60. The urine grew an extended-spectrum beta-lactamase producing Escherichia coli. The blood cultures are growing Sphingomonas, and the patient's leg infection grew Raoultella and an extended- spectrum beta-lactamase Escherichia coli. The HIDA scan showed no gallbladder filling at 90 minutes. On abdominal ultrasound, there was a possibility that the patient had cholecystitis. ASSESSMENT AND PLAN: As regarding the patient's leg infection with Raoultella and an extended- spectrum beta-lactamase producing Escherichia coli and also with the patient's positive blood cultures for Sphingomonas, I plan on continuing with ertapenem, which should cover all 3 of those organisms. As regarding the patient's ultrasound, which showed possible cholecystitis, and the patient's HIDA scan, which showed no gallbladder filling at 90 minutes, I have put in a consult for Dr. Denis to see if he feels the patient has cholecystitis and requires cholecystectomy. COMORBIDITIES: Include hypertension, obesity, and congestive heart failure. cc: Ish Pickett MD
[2019-02-26] MEDS: PRINIVIL PO SCH ×2 (08:57→21:11)
[2019-02-26] MEDS: LASIX IV SCH ×2 (08:57→21:11)
[2019-02-26] MEDS: COLCRYS PO SCH ×2 (08:57→21:11)
[2019-02-26] MEDS: PERICOLACE PO SCH ×2 (08:57→21:11)
[2019-02-26] MEDS: ALDACTONE PO SCH ×2 (08:57→21:11)
[2019-02-26] MEDS: APRESOLINE PO SCH ×3 (08:58→16:11)
[2019-02-26] MEDS: ISORDIL PO SCH ×3 (08:58→16:11)
[2019-02-26] MEDS: LANOXIN PO SCH (08:58)
[2019-02-26] MEDS: ZYLOPRIM PO SCH ×2 (08:58→21:11)
[2019-02-26] MEDS: CARDIZEM 125 MG in NS 100 ML IV SCH (10:05)
--- NOTE | 2019-02-26 10:15 | GENERAL SURGERY CONSULTATION ---
DATE: 02/26/2019 REQUESTING PHYSICIAN: Dr. Pickett. CONSULT REQUEST: Abnormal HIDA scan. HISTORY OF PRESENT ILLNESS: A 58-year-old gentleman with history of congestive heart failure, who has been living in [place] for a while. Apparently he came into the hospital on 02/22/2019 with right lower extremity edema. He has been extensively worked up for this and has also started grow E coli which is multidrug resistant in his urine and abnormal bacteria in his blood and wound. He has been started on IV antibiotics and infectious disease has been consulted. He is currently receiving meropenem. He did have an echo that showed ejection fraction of 20% and some suggestion of pulmonary hypertension. He is on digoxin right now. He denies any kind of right upper quadrant pain or any kind of postprandial pain. I was asked to weigh an opinion. PAST MEDICAL HISTORY: Congestive heart failure. PAST SURGICAL HISTORY: Includes hernia repair and jaw surgery. ALLERGIES: None. CURRENT MEDICATIONS: MAR reviewed. SOCIAL HISTORY: He had been living in [facility]. FAMILY HISTORY: Reviewed with the patient and noncontributory. REVIEW OF SYSTEMS: A full 10 point review of systems obtained negative as specified in HPI. PHYSICAL EXAMINATION: Vital Signs: Patient is currently afebrile. Vital signs are stable. General: No acute distress. HEENT: Normocephalic, atraumatic. Pupils equal, round, reactive to light. Mucous membranes moist. Oropharynx benign. Neck: Supple, trachea midline. Cardiovascular: Irregularly irregular. Lungs: Grossly clear. Abdomen: Soft, nontender, nondistended. Extremities: Some swelling noted to bilateral lower extremities. Vascular: All extremities perfused. Neurologic: Grossly intact. Skin: Wounds as noted above. LABORATORY: White blood count 13, hematocrit 42, platelet count 218,000. Bilirubin on admission was 2.8, but has not been recheck since then. Imaging as noted above. ASSESSMENT AND PLAN: A 58-year-old gentleman with abnormal HIDA scan. 1. Abnormal HIDA scan. At this time, the patient is not really symptomatic. He is already on antibiotics that potentially could cover cholecystitis. At this point with given his recent echocardiogram, I think the risks benefits, put him in a situation where we try to treat him nonoperatively. If he had more tenderness or if he develops more tenderness in his right upper quadrant, may consider surgical intervention but at this time, would hold off given the high risk of surgical complication given his heart. 2. We will continue to follow while he is in the hospital. cc: Nas Denis MD
[2019-02-26] MEDS: LOVENOX SUBQ SCH ×2 (12:20→21:12)
--- NOTE | 2019-02-26 16:28 | PROGRESS NOTE ---
DATE: 02/26/2019 SUBJECTIVE: This morning Mr. Dunbar refers to be doing well. No new complaints. According to him, the swelling and shortness of breath is getting better. OBJECTIVE: Vital signs: Blood pressure is 128/76, pulse of 83, respirations 20, temperature 98.3 degrees. Patient is saturating 99% on 2 L of nasal cannula. General: Mr. Dunbar is a 58-year- old gentleman. He is in bed, no distress. HEENT: Mucosa is pink and moist. Anicteric. Acyanotic. Neck: Supple, still positive JVD. Chest: Air entry is bilaterally reduced. A few crackles. Cardiovascular: Regular rate and rhythm. Abdomen: Soft. There is a positive hepatojugular reflex. Mild edema on the lateral aspect of the abdominal wall. : Julio catheter is in place. Extremities: About 2+ pedal edema. 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 DATA: Patient I's and O's: Urine output was 2039. Patient is currently negative balance of 12,590. LABORATORY DATA: Chemistry is completely normal. ASSESSMENT: 1. Anasarca secondary to congestive heart failure. Patient continues to be negative balance. He is on diuretic therapy. 2. Severe advanced congestive heart failure with ejection fraction of 20% on echocardiogram. Etiology is unclear. Cardiology is on board. I think there is a plan for ischemic workup once patient is euvolemic. 3. Atrial fibrillation with rapid ventricular response, currently rate controlled. Patient is on diltiazem and digoxin. 4. Right lower lobe pneumonia. Patient is on antibiotic antimicrobial. 5. Extended spectrum beta lactamase Escherichia coli. The patient is on ertapenem. 6. Sphingomonas paucimobilis bacteremia. We will continue with the current antimicrobial therapy. Infectious disease is on board and we will repeat the blood cultures from tomorrow. 7. Newly diagnosed thrombosis of the left lower extremity. The patient is on therapeutic Lovenox. 8. Hypertension controlled. 9. Gallbladder sludge with abnormal HIDA scan. The patient is currently asymptomatic and has been evaluated by surgery. 10. Hepatic steatosis noted. 11. Hyperuricemia. Patient is on colchicine and allopurinol. 12. Left lower left lower extremity wound infection with culture positive for extended spectrum beta lactamase Escherichia coli Raoultella [place]. We will continue with the anti microbial. So in general Mr. Dunbar is a who presented because of congestive symptoms, was found to be in anasarca as a result of severe dilated cardiomyopathy. He seems to be doing well. His congestive symptoms got better. Cardiology is on board. He is also found to be bacteremic and ID is on board. We will repeat his blood cultures for tomorrow Mr. Dunbar is also a so social work and case management have reached out to the [facility] to see if they would want him there and we are pending their further recommendations. cc: Jase Mortensen MD
[2019-02-26] MEDS: INVANZ 1 GM/NS 1 GM/50 ML IVPB IV SCH (21:11)
[2019-02-27] MEDS: CARDIZEM 125 MG in NS 100 ML IV SCH ×2 (01:02→13:53)
[2019-02-27 05:36] LABS: BASO# 0.04 X1000 (0.0-0.2); BASO% 0.4 % (0.0-0.8); EOS# 0.09 X1000 (0.0-0.7); EOS% 0.8 % (0.0-10.0); HEMATOCRIT 40.9 % (42.0-52.0); HEMOGLOBIN 13.7 g/dL (14.0-18.0); IMM GRAN# 0.04 X1000 (0.0-0.04); IMM GRAN% 0.4 % (0.0-0.5); LYMPH# 1.75 X1000 (1.2-3.4); LYMPH% 15.9 % (20.5-51.1); MCH 28.1 PG (27-31); MCHC 33.5 g/dL (33-37); MONO# 0.68 X1000 (0.11-0.59); MONO% 6.2 % (1.7-9.3); MPV 10.9 FL (7.4-10.4); NEUT# 8.42 X1000 (1.4-6.5); NEUT% 76.3 % (42.2-75.2); PLT 231 X1000 (130-400); RBC 4.87 XMIL (4.7-6.1); WBC 11.02 X1000 (4.8-10.8)
[2019-02-27 06:04] LABS: AGAP 8; ALBUMIN 2.3 g/dL (3.5-5.0); BUN 10 mg/dL (8-22); CHLORIDE 96 mmol/L (98-107); COSMO 269; CREATININE 0.7 mg/dL (0.7-1.2); ESTIMATED GFR > 60; GLUCOSE 97 mg/dL (70-104); POTASSIUM 3.5 mmol/L (3.5-5.1); SODIUM 135 mmol/L (136-145); TCO2 31 mmol/L (25-35)
--- NOTE | 2019-02-27 07:29 | Diag Imaging Result Doc PS360 ---
EXAM: CHEST-PORTABLE HISTORY: dyspnea TECHNIQUE: Portable chest single view COMPARISON: 02/22/2019 FINDINGS: The lungs are well expanded. The heart is enlarged. Interval clearing in the right base. No pulmonary edema. Decreased pleural fluid. IMPRESSION: Overall interval improvement. Electronically signed by Alec Dugan 02/27/2019 7:26 AM
[2019-02-27] MEDS: LASIX IV SCH ×2 (07:56→20:29)
[2019-02-27] MEDS: APRESOLINE PO SCH ×3 (08:00→16:38)
[2019-02-27] MEDS: COLCRYS PO SCH ×2 (08:00→20:29)
[2019-02-27] MEDS: ALDACTONE PO SCH ×2 (08:00→20:29)
[2019-02-27] MEDS: ZYLOPRIM PO SCH ×2 (08:00→20:29)
[2019-02-27] MEDS: PERICOLACE PO SCH ×2 (08:00→20:29)
[2019-02-27] MEDS: ISORDIL PO SCH ×3 (08:00→16:38)
[2019-02-27] MEDS: PRINIVIL PO SCH ×2 (08:00→20:29)
[2019-02-27] MEDS: LANOXIN PO SCH (08:00)
[2019-02-27] MEDS: LOVENOX SUBQ SCH ×2 (08:08→20:29)
--- NOTE | 2019-02-27 08:33 | CARDIOLOGY PROGRESS NOTE ---
DATE: 02/27/2019 CHIEF COMPLAINT: Swelling, shortness of breath, irregular heartbeat. SUBJECTIVE: Mr. Dunbar continues to gradually improve little by little. He is not having any chest pain. Breathing is getting better. His legs are getting smaller. His weight today is 238.1 pounds. That was a standing scale weight. OBJECTIVE: Vital signs: His vital signs, blood pressure 105/73, temperature 98.1, pulse 69, respirations 16. General: He is awake, alert, oriented, no distress. HEENT: Unremarkable. Chest: Sounds relatively clear to auscultation and percussion. Heart: Sounds are irregularly irregular. No gallop or murmur. Abdomen: His abdomen is obese, nontender. Extremities: Showed less edema in the right leg. The left leg appears to be firm. That is the one with the deep venous thrombosis. Neurologic exam: He can stand up on the scale. He is alert and oriented x3. Cranial nerves normal. LABORATORY: Blood work today, sodium is 135, potassium 3.5, BUN 10, creatinine 0.7, CO2 31, chloride 96. Hemoglobin 13.7. Chest x-ray shows improvement. Telemetry shows atrial fibrillation, controlled rate. IMPRESSION: 1. Patient who presented with congestive heart failure systolic probably chronic decompensated. 2. Atrial fibrillation persistent. 3. Apical left ventricular thrombus. 4. Deep venous thrombosis of left leg. 5. Large right pleural effusion. 6. History of sleep apnea syndrome. RECOMMENDATIONS: At this time, we will continue present therapy. The patient is diuresing properly. I think he is going to need more days in the hospital until we optimize his situation prior to attempting any further cardiac testing. Of note, there are blood cultures that have been reported positive for a Sphingomonas paucimobilis, which is sensitive to all antibiotics including Cefazolin, gentamicin, Levaquin, and sulfa. That means that he has some septicemia arising from either skin or urinary tract. That really needs to be treated for a few days. Infectious Disease, Dr. Pickett, is on the case. We will continue to follow. cc: Kareem Salazar MD
--- NOTE | 2019-02-27 09:32 | GENERAL SURGERY PROGRESS NOTE ---
DATE: 02/27/2019 SUBJECTIVE: Patient seems to be doing okay. He denies any kind of abdominal pain at this moment. OBJECTIVE: Vital signs: Patient is currently afebrile. His vital signs are stable. General exam: No acute distress. HEENT: Normocephalic, atraumatic. Pupils equal, round, reactive to light. Mucous membranes moist. Oropharynx benign. Neck: Supple. Trachea midline. Cardiovascular: Regular rate and rhythm. Lungs: Clear. Abdomen: Soft, nontender, nondistended. Extremities: Swelling noted bilaterally. Vascular: All extremities perfused. Neurologic: Grossly intact. Skin: Chronic wound as noted. LABORATORY: None this morning as of yet. ASSESSMENT AND PLAN: A 58-year-old gentleman with multiple medical comorbidities and possible cholecystitis. 1. Multiple medical comorbidities. At this time, patient is being managed by the hospitalist and Cardiology. We will defer to them. 2. Possible cholecystitis. At this time, patient's medical comorbidities make him high risk for surgery. He is not very symptomatic at this point. Would recommend continue antibiotics as he is on and monitor. If he seems to develop any kind of right upper quadrant pain, may consider surgical intervention, but at this time risks outweigh benefit for surgical intervention. cc: Nas Denis MD
--- NOTE | 2019-02-27 09:53 | INFECTIOUS DISEASE PROGRESS NO ---
DATE: 02/27/2019 PRESENT ILLNESS: The patient has a Sphingomonas bacteremia. He also has an extended spectrum beta lactamase producing E coli urinary tract infection. The patient's legs have wounds infected with an extended spectrum beta lactamase producing E coli and Raoultella. MEDICATIONS: The patient is on ertapenem. The antibiotic was started 3 days ago. PHYSICAL EXAMINATION: Vital Signs: Temperature is 98.9 degrees, pulse 89, respirations 19, blood pressure 119/87. The patient weighs 255 pounds. General: This is an obese, chronically ill appearing middle-aged male. He is in no acute distress today. Head/eyes/ears/nose/throat: He can hear my spoken words and see near objects. He does not have a white coating on his tongue. Neck: He does not have any pain in his neck when he moves it or when he moves his head. Lungs: Clear to auscultation. Cardiovascular: Heart rate is irregular. Abdomen: Soft and nontender. Neurologic: The patient is alert. He can move his extremities. He does not have a tremor. Extremities: Patient's wounds on both of his legs are draining less and there is no surrounding erythema and there is no purulence. The patient has edema in both legs. LABORATORY AND RADIOLOGIC STUDIES: Radiology: The patient just had a chest x-ray taken, the results are not yet back. His CBC shows a white count of 11,020, hemoglobin 13.7, and platelet count 231,000. Creatinine is 0.7, GFR is greater than 60. Repeat blood cultures were drawn today. ASSESSMENT AND PLAN: The patient has a Sphingomonas bacteremia which may have originated from his gallbladder. My plan is to continue ertapenem. Day 1 of treatment with ertapenem for the patient's bacteremia will be the first day that the repeat blood cultures are negative. As regarding the patient's urinary tract infection also the ertapenem and should cover that as well. The patient's leg infections infected with E coli and Raoultella also should respond to treatment with ertapenem. I think it would be a big help also, if the patient could get the fluid out of his legs, then I think the wounds would be more likely to heal. As regarding the patient's gallbladder. Dr. Denis saw the patient yesterday and felt that it was best at this time to do medical treatment and not do a cholecystectomy. The plan to continue ertapenem for the patient's infections as mentioned above. Also, I have told the patient to elevate his legs as much as possible. COMORBIDITIES: Hypertension, obesity, and congestive heart failure. cc: Ish Pickett MD
--- NOTE | 2019-02-27 18:35 | PROGRESS NOTE ---
DATE: 02/27/2019 INTERVAL HISTORY: Patient with reasonable diuresis currently. Respiratory status improving. He remains afebrile. Repeat blood cultures drawn this morning and nothing so far. No new complaints. No acute events overnight. REVIEW OF SYSTEMS: Twelve point review of systems negative except as per interval history. LABS: WBC 11.0, hemoglobin 13.7, hematocrit 40.9, platelets 231,000. Sodium 135, potassium 3.5, BUN 10, creatinine 0.7. BNP 141. Procalcitonin 0.2. IMAGING: Chest x-ray: Interval improvement in fluid. VITAL SIGNS: T-max 98.3 degrees, pulse 97, respirations 17, blood pressure 101/69, O2 saturation 99% on 2 L by nasal cannula. PHYSICAL EXAMINATION: General: No acute distress. Chronically ill appearing, obese. Vital signs: As above. HEENT: Normocephalic, atraumatic. Moist mucous membranes. No cervical adenopathy. Cardiovascular: Irregular rhythm but normal rate. No murmurs noted. Pulmonary: Slight bibasilar crackles but otherwise clear to auscultation. Good air entry. Abdomen: Soft, nontender, nondistended. Bowel sounds positive. Extremities: Peripheral pulses decreased but present. There is 3+ right and 2+ left lower extremity edema. Neurologic: Cranial nerves grossly intact. No focal deficits identified. Psychiatric: Normal mood and affect. Awake, alert, and oriented x3. Skin: Edema as above. Lower extremity wounds bandaged. No new lesions noted. ASSESSMENT AND PLAN: 1. Acute on chronic systolic congestive heart failure. Last known ejection fraction 20. Pulmonary edema appears to be improving with diuresis. Only faint bibasilar crackles on exam at this point. Chest x-ray improved. Cardiology following. Continue diuresis as tolerated. Cardiology may consider ischemic workup once he has improved. 2. Atrial fibrillation with rapid ventricular response. Has been rate controlled over the last few days on diltiazem and digoxin. Monitor. 3. Possible pneumonia. Patient with possible pneumonia on initial chest x-ray. Now improved. Uncertain if this represents true pneumonia given his recent negative procalcitonin, but on antibiotics anyway for other issues as below. 4. Sphingomonas bacteremia. ID on board and has patient ertapenem. Repeat blood cultures drawn this morning, negative so far. 5. Escherichia coli urinary tract infection. Patient with ESBL E. coli in his urine. Treating with ertapenem as above. 6. Wound infection. Wound culture is growing out E. coli and sphingomonas which should be treated with ertapenem that he is on for his other issues. 7. Subacute lower extremity deep vein thrombosis. Continue Lovenox. 8. Fatty liver, noted. 9. Abnormal HIDA scan. The patient with no right upper quadrant tenderness or pain. On last check, bilirubin was only mildly elevated. ALT was normal. AST was minimally elevated, as was alkaline phosphatase. Evaluated by Surgery and given his current lack of symptoms, they felt that surgery was not indicated at this time. Continue to monitor. [facility]
[2019-02-27] MEDS: INVANZ 1 GM/NS 1 GM/50 ML IVPB IV SCH (20:29)
[2019-02-28] MEDS ORDERED: CARDIZEM 125 MG/D5W 125 MG/125 ML IVPB IV SCH (03:30)
[2019-02-28 05:36] LABS: BASO# 0.03 X1000 (0.0-0.2); BASO% 0.3 % (0.0-0.8); EOS# 0.08 X1000 (0.0-0.7); EOS% 0.8 % (0.0-10.0); HEMATOCRIT 39.1 % (42.0-52.0); HEMOGLOBIN 13.2 g/dL (14.0-18.0); IMM GRAN# 0.05 X1000 (0.0-0.04); IMM GRAN% 0.5 % (0.0-0.5); LYMPH# 1.73 X1000 (1.2-3.4); LYMPH% 17.4 % (20.5-51.1); MCH 28.4 PG (27-31); MCHC 33.8 g/dL (33-37); MCV 84.3 FL (81-99); MONO# 0.73 X1000 (0.11-0.59); MONO% 7.3 % (1.7-9.3); MPV 10.9 FL (7.4-10.4); NEUT# 7.34 X1000 (1.4-6.5); NEUT% 73.7 % (42.2-75.2); PLT 226 X1000 (130-400); RBC 4.64 XMIL (4.7-6.1); RDW 16.7 % (11.5-14.5); WBC 9.96 X1000 (4.8-10.8)
[2019-02-28 06:06] LABS: AGAP 8; ALB/GLOB RATIO 0.6; ALBUMIN 2.3 g/dL (3.5-5.0); ALKALINE PHOSPHATASE 164 U/L (32-122); BUN 9 mg/dL (8-22); CALCIUM 8.1 mg/dL (8.8-10.2); CHLORIDE 98 mmol/L (98-107); COSMO 272; CREATININE 0.6 mg/dL (0.7-1.2); ESTIMATED GFR > 60; GLUCOSE 87 mg/dL (70-104); GOT 28 U/L (10-34); GPT 26 U/L (10-44); POTASSIUM 3.2 mmol/L (3.5-5.1); SODIUM 137 mmol/L (136-145); TCO2 31 mmol/L (25-35); TOTAL BILIRUBIN 2.15 mg/dL (0.20-1.00); TOTAL PROTEIN 5.9 g/dL (6.3-8.3)
[2019-02-28] MEDS: LOVENOX SUBQ SCH ×2 (08:16→21:18)
[2019-02-28] MEDS: LASIX IV SCH ×2 (08:16→21:18)
[2019-02-28] MEDS: PRINIVIL PO SCH ×2 (08:17→21:18)
[2019-02-28] MEDS: ISORDIL PO SCH ×3 (08:17→16:34)
[2019-02-28] MEDS: APRESOLINE PO SCH ×3 (08:17→16:34)
[2019-02-28] MEDS: LANOXIN PO SCH (08:17)
[2019-02-28] MEDS: ALDACTONE PO SCH ×2 (08:17→21:18)
[2019-02-28] MEDS: PERICOLACE PO SCH ×2 (08:17→21:19)
[2019-02-28] MEDS: COLCRYS PO SCH ×2 (08:17→21:18)
[2019-02-28] MEDS: ZYLOPRIM PO SCH ×2 (08:17→21:18)
--- NOTE | 2019-02-28 12:37 | GENERAL SURGERY PROGRESS NOTE ---
DATE: 02/28/2019 SUBJECTIVE: The patient is doing about the same. No abdominal pain. OBJECTIVE: Vital Signs: The patient is currently afebrile. His vital signs are stable. General: No acute distress. HEENT: Normocephalic, atraumatic. Pupils equal, round, reactive to light. Mucous membranes moist. Oropharynx benign. Neck: Supple. Trachea midline. Cardiovascular: Regular rate and rhythm. Lungs: Grossly clear. Abdomen: Soft, nontender, nondistended. Extremities: Moves all extremities, but still swelling noted. Vascular: All extremities perfused. Neurologic: Grossly intact. Skin: No changes. LABORATORY DATA: White blood cell count is 9, hematocrit 39, platelet count 226,000. ASSESSMENT AND PLAN: A 58-year-old gentleman with multiple medical comorbidities with possible cholecystitis. 1. Multiple medical comorbidities. At this time, will be managed by the hospitalist and Cardiology. Will defer to them. 2. Possible cholecystitis. At this time, his medical comorbidities make him high risk for surgery. He does not seem symptomatic, so will just keep him on antibiotics. If he develops any right upper quadrant pain, we may consider surgical intervention. At this time, I will follow peripherally. cc: Nas Denis MD
[2019-02-28] MEDS ORDERED: KLOR-CON PO ONE (13:07)
--- NOTE | 2019-02-28 13:21 | INFECTIOUS DISEASE PROGRESS NO ---
DATE: 02/28/2019 PRESENT ILLNESS: The patient has Sphingomonas bacteremia. He also has an extended-spectrum beta lactamase-producing Escherichia coli urinary tract infection. The patient's leg wounds are infected with the extended-spectrum beta lactamase-producing Escherichia coli and Raoultella. The patient possibly has cholecystitis, but given the fact that the patient does not have right upper quadrant tenderness and he has cardiac issues, he is considered not to be a surgical candidate at this time. MEDICATIONS: The patient is on ertapenem. The day 1 of treatment with ertapenem will be when the patient first has negative blood cultures. The blood cultures were drawn yesterday, and there is no report yet today. PHYSICAL EXAMINATION: Vital Signs: Temperature is 98 degrees, pulse 82, respirations 16, blood pressure 118/82. General: This is an obese, middle-aged male. He is in no acute distress. HEENT: He can hear my spoken words and see near objects. He does not have any white coating of his tongue. Neck: No neck pain with movement of his neck or head. Lungs: Clear to auscultation. Cardiovascular: Heart rate is irregular. Abdomen: Soft and nontender. Neurologic: The patient is alert. He carries on a coherent conversation. He can move his extremities. There is no tremor. Extremities: The patient's leg wound drainage has stopped. There is no purulence or necrosis in the wounds. LABORATORY DATA: The patient's CBC shows a white count of 9960, hemoglobin 13.2, and platelet count 226,000. Creatinine is 0.6. GFR is greater than 60. Procalcitonin is 0.21, which translates into pneumonia being unlikely. Repeat blood cultures are pending. ASSESSMENT AND PLAN: I plan to continue with ertapenem for the patient's bacteremia, urinary tract infection, and leg wound infections. As mentioned earlier about the patient's gallbladder, he is not considered a surgical candidate at this time. COMORBIDITIES: Hypertension, obesity, and congestive heart failure. cc: Ish Pickett MD
[2019-02-28] MEDS: LOPRESSOR PO SCH ×2 (13:30→21:18)
--- NOTE | 2019-02-28 18:49 | PROGRESS NOTE ---
DATE: 02/28/2019 INTERVAL HISTORY: Patient with slowly improving dyspnea on exertion and lower extremity edema. Repeat blood cultures remain negative so far. No new complaints. No acute events overnight. REVIEW OF SYSTEMS: A 12 point review of systems is negative except as per interval history. LABS: WBC 9.9, hemoglobin 13.2, hematocrit 39.1, platelets 226,000. Sodium 137, potassium 3.2, BUN 9, creatinine 0.6, total bilirubin 2.5, AST 28, ALT 26, alkaline phosphatase 164. VITAL SIGNS: T-max 98.9 degrees, pulse 94, respirations 18, blood pressure 100/65, O2 saturation 97% on 2 L. PHYSICAL EXAMINATION: General: No acute distress. Chronically ill-appearing, obese. Vital signs: As above. HEENT: Normocephalic, atraumatic. Moist mucous membranes. No cervical adenopathy. Cardiovascular: Irregular rhythm but normal rate. No murmurs noted. Pulmonary: Minimal bibasilar crackles remain but clear superiorly. Good air entry. Abdomen: Soft, nontender, nondistended. Bowel sounds positive. Extremities: Peripheral pulses decreased but present. There is 3+ right and 2+ left lower extremity edema, minimally improved. Neurologic: Cranial nerves grossly intact. No focal deficits identified. Psychiatric: Normal mood and affect. Awake, alert, oriented x3. Skin: Edema as above. Lower extremity wounds remain bandaged. Bandaging clean, dry, intact. No new lesions noted. ASSESSMENT AND PLAN: 1. Acute on chronic systolic congestive heart failure. Last known EF 20%. Pulmonary edema appears to be improving slowly with diuresis. Still with some bibasilar crackles, but improved from previous. Cardiology following. Continue diuresis as tolerated. After other issues are improved, Cardiology may consider ischemic workup. 2. Atrial fibrillation with rapid ventricular response. The patient remains rate controlled on digoxin. Cardiology considering transitioning from diltiazem drip to oral medications. 3. Sphingomonas bacteremia. ID on board and has patient on ertapenem for multiple infections. Repeat blood cultures yesterday no growth to date. 4. Escherichia coli urinary tract infection. Patient with ESBL E. coli in his urine. Treating with ertapenem as above. 5. Wound infection. Wound culture also growing E. coli and also Sphingomonas. Being treated with ertapenem as above. 6. Subacute lower extremity deep vein thrombosis. Continue Lovenox. 7. Fatty liver. Noted. 8. Abnormal HIDA scan. Patient with no right upper quadrant tenderness or pain. Bilirubin mildly elevated on admission but appears to be trending down. Alkaline phosphatase also mildly elevated on admission but trending down. Evaluated by Surgery and given his current lack of symptoms, they felt that surgery was not indicated at this time. Continue to monitor.
[2019-02-28] MEDS: INVANZ 1 GM/NS 1 GM/50 ML IVPB IV SCH (21:18)
[2019-03-01] MEDS: LOPRESSOR PO SCH ×3 (04:16→21:55)
[2019-03-01 06:01] LABS: BASO# 0.03 X1000 (0.0-0.2); BASO% 0.4 % (0.0-0.8); EOS# 0.09 X1000 (0.0-0.7); EOS% 1.2 % (0.0-10.0); HEMATOCRIT 39.2 % (42.0-52.0); HEMOGLOBIN 12.9 g/dL (14.0-18.0); IMM GRAN# 0.03 X1000 (0.0-0.04); IMM GRAN% 0.4 % (0.0-0.5); LYMPH# 1.73 X1000 (1.2-3.4); LYMPH% 23.6 % (20.5-51.1); MCHC 32.9 g/dL (33-37); MONO# 0.93 X1000 (0.11-0.59); MONO% 12.7 % (1.7-9.3); MPV 11.3 FL (7.4-10.4); NEUT# 4.51 X1000 (1.4-6.5); NEUT% 61.7 % (42.2-75.2); PLT 233 X1000 (130-400); RBC 4.61 XMIL (4.7-6.1); RDW 16.5 % (11.5-14.5); WBC 7.32 X1000 (4.8-10.8)
[2019-03-01 06:32] LABS: AGAP 9; ALB/GLOB RATIO 0.6; ALBUMIN 2.3 g/dL (3.5-5.0); ALKALINE PHOSPHATASE 168 U/L (32-122); BUN 9 mg/dL (8-22); CALCIUM 8.3 mg/dL (8.8-10.2); CHLORIDE 98 mmol/L (98-107); COSMO 274; CREATININE 0.7 mg/dL (0.7-1.2); ESTIMATED GFR > 60; GLUCOSE 84 mg/dL (70-104); GOT 31 U/L (10-34); GPT 27 U/L (10-44); POTASSIUM 3.3 mmol/L (3.5-5.1); SODIUM 138 mmol/L (136-145); TCO2 31 mmol/L (25-35); TOTAL BILIRUBIN 1.81 mg/dL (0.20-1.00)
--- NOTE | 2019-03-01 07:48 | EKG Report ---
Test Performed on : 03/01/2019 06:16:38 AM Test Reason : afib Blood Pressure : / mmHG Vent. Rate : 102 BPM Atrial Rate : 144 BPM P-R Int : 000 ms QRS Dur : 090 ms QT Int : 360 ms P-R-T Axes : 000 -15 153 degrees QTc Int : 469 ms Atrial fibrillation. with rapid ventricular response. T wave abnormality, consider lateral ischemia Abnormal ECG When compared with ECG of 23-FEB-2019 08:12, No significant change was found Confirmed by Obdulio Michaels MD ([id number]) on 03/03/2019 12:03:16 PM
[2019-03-01] MEDS: LANOXIN PO SCH (08:30)
[2019-03-01] MEDS: PRINIVIL PO SCH ×2 (08:30→23:31)
[2019-03-01] MEDS: ALDACTONE PO SCH ×2 (08:30→20:27)
[2019-03-01] MEDS: LOVENOX SUBQ SCH ×2 (08:30→20:11)
[2019-03-01] MEDS: ZYLOPRIM PO SCH ×2 (08:30→20:17)
[2019-03-01] MEDS: COLCRYS PO SCH ×2 (08:30→20:11)
[2019-03-01] MEDS: APRESOLINE PO SCH ×3 (08:30→18:04)
[2019-03-01] MEDS: LASIX IV SCH ×2 (08:30→20:16)
[2019-03-01] MEDS: ISORDIL PO SCH ×3 (08:30→18:04)
[2019-03-01] MEDS: PERICOLACE PO SCH ×2 (10:19→20:11)
--- NOTE | 2019-03-01 15:53 | INFECTIOUS DISEASE PROGRESS NO ---
DATE: 03/01/2019 PRESENT ILLNESS: The patient has a Sphingomonas bacteremia. He also has an extended spectrum beta lactamase producing E coli urinary tract infection. The patient's leg wounds are infected with the extended spectrum beta lactamase producing E coli and Raoultella. There is a possibility the patient has cholecystitis, but at this time no surgery is indicated. MEDICATIONS: The patient is on ertapenem; this is day 2 of treatment with day 1 being the first day that the patient's blood cultures were sterile, which was on February 27. PHYSICAL EXAMINATION: Vital Signs: Temperature is 98 degrees, pulse 86, respirations 17, blood pressure 95/65. General: This is an obese, middle-aged male. He is in no acute distress. Head/eyes/ears/nose/throat: He can hear my spoken words and see near objects. There is no drainage from the nose or ears. He does not have any white coating on his tongue. Neck: No neck pain with movement of his neck or head. Lungs: Clear to auscultation. Cardiovascular: Heart rate is irregular. Abdomen: Soft and nontender. Extremities: Both leg wounds are getting smaller in size. There is no purulent drainage. Neurologic: The patient is alert. He can move his extremities. He is able to ambulate. There is no tremor. LAB AND X-RAY: There is no radiographic study for today at this time. The patient's CBC shows a white count of 7320, hemoglobin 12.9, and platelet count 233,000. There is no BMP for today. The patient's blood cultures from 2 days ago are negative. ASSESSMENT AND PLAN: The patient has a bacteremia, urinary tract infection, and leg wound infections. I plan to continue ertapenem to treat these conditions. The patient has possible cholecystitis, but he is not considered a surgical candidate at this time. COMORBIDITIES: Hypertension, obesity, and congestive heart failure. cc: Ish Pickett MD
[2019-03-01] MEDS ORDERED: POTASSIUM CHLORIDE 20% LIQUID PO ONE (17:20)
--- NOTE | 2019-03-01 19:13 | CARDIOLOGY PROGRESS NOTE ---
DATE: 03/01/2019 CHIEF COMPLAINT: Swelling and shortness of breath. SUBJECTIVE: Mr. Dunbar continues to make progress. He is definitely less swollen. Both legs are becoming smaller. He has observed a couple of reported lesions in the skin of the leg and arm. We have to keep an eye on that. I do not believe that this is a case of purpura fulminans; however, that needs to be monitored closely. His platelet count is normal. OBJECTIVE: Vital Signs: Blood pressure 91/51, temperature 98.4, pulse 97, respirations 17. General: She is awake and alert, in no distress. HEENT: No significant jugular venous distention. Chest: Sounds clear to auscultation and percussion. Cardiovascular: Heart sounds irregularly irregular. No gallop or murmur noted. Abdomen: Less distended. Extremities: Show obviously less edema. Neurologic: He follows commands. Moves 4 extremities. BLOOD WORK: Hemoglobin 12.9, hematocrit 39.2, platelet count 233,000. That has not changed. Sodium is 138, potassium 3.3, BUN 9, creatinine 0.7. His albumin is 2.3. IMPRESSION: 1. Patient with congestive heart failure, systolic, possibly chronic. 2. Persistent atrial fibrillation. 3. Apical left ventricular thrombus. 4. Left deep venous thrombosis. 5. Urinary tract infection with Escherichia coli, extended-spectrum beta lactamase positive. 6. Septicemia to a Sphingomonas paucimobilis. 7. Sleep apnea syndrome. RECOMMENDATIONS: 1. At this time we will continue present supportive therapy. The patient is generally getting better. I might do a myocardial perfusion stress test on Monday using a Lexiscan protocol to have a rough idea of whether or not we are dealing with significant myocardial scar. In the meantime, we will continue with aggressive antibiotic therapy and close monitoring in the hospital. cc: Kareem Salazar MD
[2019-03-01] MEDS: INVANZ 1 GM/NS 1 GM/50 ML IVPB IV SCH (20:17)
--- NOTE | 2019-03-01 21:25 | PROGRESS NOTE ---
DATE: 03/01/2019 INTERVAL HISTORY: Patient with continued slow improvement in lower extremity edema and dyspnea on exertion. Approaching baseline. Remains afebrile. No acute events overnight. No new complaints. REVIEW OF SYSTEMS: A 12 point review of systems is negative except as per Interval History. LABS: WBC 7.3, hemoglobin 12.9, hematocrit 39.2, platelets 233,000. Sodium 138, potassium 3.3, BUN 9, creatinine 0.7, bilirubin 1.8, AST 31, ALT 27, alkaline phosphatase 168. VITAL SIGNS: T-max 98.5 degrees, pulse 97, respirations 17, blood pressure 91/51, O2 saturation 96% on 2 L by nasal cannula. PHYSICAL EXAMINATION: General: No acute distress, chronically ill-appearing, obese. Vital Signs: As above. HEENT: Normocephalic, atraumatic. Moist mucous membranes. No cervical adenopathy. Cardiovascular: Irregular rhythm, but normal rate continues. No murmurs noted. Pulmonary: Still with minimal bibasilar crackles, but almost resolved. Good air entry. Abdomen: Soft, nontender, nondistended. Bowel sounds positive. Extremities: Peripheral pulses decreased, but present. 2+ right and 1 to 2+ left lower extremity edema, improving slowly. Wrinkling of the skin related to previous more significant swelling. Neurologic: Cranial nerves grossly intact. No focal deficits. Psychiatric: Normal mood and affect. Awake, alert, oriented x3. Skin: Edema as above. Small lower extremity wound bandaged. No new rashes or lesions noted. ASSESSMENT AND PLAN: 1. Acute on chronic systolic congestive heart failure. Last known ejection fraction 20. Respiratory status and lower extremity swelling continuing to improve with diuresis. Can likely wean off oxygen entirely in the next day or so. Cardiology following. Continue diuresis as tolerated. Cardiology considering ischemic workup in the near future. 2. Atrial fibrillation with rapid ventricular response. Has been rate controlled for several days. Remains on diltiazem drip and digoxin. Monitor. May be able to transition off diltiazem. 3. Sphingomonas bacteremia, extended-spectrum beta lactamase Escherichia coli urinary tract infection. Lower extremity wound infection. Patient with Sphingomonas bacteremia which also grew out of his wounds, along with extended-spectrum beta lactamase Escherichia coli, which also grew out of his urine. Patient on ertapenem for all the above. Repeat blood cultures have remained negative. Infectious Disease following. Will await further recommendations from Infectious Disease. Hopeful that as his repeat blood cultures have remained negative, may be able to get a peripherally inserted central catheter line and consider discharge in the near future once Cardiology is finished with whatever workup they deem appropriate. 4. Subacute left lower extremity deep venous thrombosis. Patient's right extremity is actually the more swollen one, but discussed with Radiology. The study report is not crossing over appropriately, but he was found to have extensive left lower extremity deep venous thrombosis. No clot was identified in the right lower extremity. 5. Fatty liver noted, stable. 6. Abnormal HIDA scan. Patient with no right upper quadrant pain or tenderness. Bilirubin has been mildly elevated, but trending down. Alkaline phosphatase minimally elevated, but stable. Evaluated by Surgery, but given his current lack of symptoms and minimal biochemical abnormalities, they felt that surgery was not indicated at this time. Continue to monitor.
--- NOTE | 2019-03-01 22:16 | Extremity Venous Study ---
PROCEDURE NAME: Venous U/S Bilateral Legs - 02/23/2019 STUDY: Right lower extremity venous duplex and color flow imaging study using the [email or web address] Vivid E9 ultrasound system with a 9L-D transducer. REFERRING PHYSICIAN: Rich Shrestha MD AGE: A 58-year-old male. 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 FINDINGS: The right common femoral vein and its branches, deep and superficial femoral veins were satisfactorily imaged. They had flow through them and were compressible. Right popliteal vein and the deep veins below the right knee were all compressible and had flow through them. The superficial veins of the right lower extremity were compressible throughout their length. There was evidence of fluid in the popliteal space on the right. The left common femoral vein and its branches, deep and superficial femoral veins were also satisfactorily imaged. There was an acute deep venous thrombosis involving the distal left superficial femoral vein and extending into the left popliteal, posterior tibial and peroneal veins distally. Superficial veins of the left lower extremity were compressible throughout their length. INTERPRETATION: Acute deep venous thrombosis involving the distal left superficial femoral vein, popliteal vein and the small veins below the left knee. cc: MD Rich Brewster MD
[2019-03-02] MEDS: LOPRESSOR PO SCH ×3 (05:31→20:52)
[2019-03-02 05:55] LABS: BASO# 0.08 X1000 (0.0-0.2); BASO% 1.3 % (0.0-0.8); EOS# 0.08 X1000 (0.0-0.7); EOS% 1.3 % (0.0-10.0); HEMATOCRIT 37.8 % (42.0-52.0); HEMOGLOBIN 12.7 g/dL (14.0-18.0); IMM GRAN# 0.03 X1000 (0.0-0.04); IMM GRAN% 0.5 % (0.0-0.5); LYMPH% 35.1 % (20.5-51.1); MCH 28.5 PG (27-31); MCHC 33.6 g/dL (33-37); MCV 84.9 FL (81-99); MONO# 0.61 X1000 (0.11-0.59); MONO% 9.7 % (1.7-9.3); MPV 11.2 FL (7.4-10.4); NEUT# 3.26 X1000 (1.4-6.5); NEUT% 52.1 % (42.2-75.2); PLT 262 X1000 (130-400); RBC 4.45 XMIL (4.7-6.1); RDW 16.4 % (11.5-14.5); WBC 6.26 X1000 (4.8-10.8)
[2019-03-02 06:28] LABS: AGAP 9; ALB/GLOB RATIO 0.6; ALBUMIN 2.3 g/dL (3.5-5.0); ALKALINE PHOSPHATASE 165 U/L (32-122); BUN 11 mg/dL (8-22); CALCIUM 8.4 mg/dL (8.8-10.2); CHLORIDE 100 mmol/L (98-107); COSMO 277; CREATININE 0.8 mg/dL (0.7-1.2); ESTIMATED GFR > 60; GLUCOSE 93 mg/dL (70-104); GOT 33 U/L (10-34); GPT 28 U/L (10-44); POTASSIUM 3.8 mmol/L (3.5-5.1); SODIUM 139 mmol/L (136-145); TCO2 30 mmol/L (25-35); TOTAL BILIRUBIN 1.58 mg/dL (0.20-1.00)
[2019-03-02] MEDS: LASIX IV SCH ×2 (09:06→20:52)
[2019-03-02] MEDS: ALDACTONE PO SCH ×2 (09:08→20:52)
[2019-03-02] MEDS: LOVENOX SUBQ SCH ×2 (09:08→20:52)
[2019-03-02] MEDS: COLCRYS PO SCH ×2 (09:09→20:51)
[2019-03-02] MEDS: APRESOLINE PO SCH ×4 (09:09→20:51)
[2019-03-02] MEDS: ISORDIL PO SCH ×4 (09:09→20:51)
[2019-03-02] MEDS: LANOXIN PO SCH (09:10)
[2019-03-02] MEDS: PERICOLACE PO SCH ×2 (09:11→20:51)
[2019-03-02] MEDS: ZYLOPRIM PO SCH ×2 (09:12→20:51)
[2019-03-02] MEDS: PRINIVIL PO SCH ×2 (09:12→20:51)
[2019-03-02] MEDS: TYLENOL PO PRN (16:42)
--- NOTE | 2019-03-02 19:13 | PROGRESS NOTE ---
DATE: 03/02/2019 INTERVAL HISTORY: The patient's dyspnea is almost resolved. Remains in atrial fibrillation, but rate controlled. No acute events overnight. No new complaints. REVIEW OF SYSTEMS: A 12-point review of systems negative, except as per interval history. LABORATORY: WBC 6.26, hemoglobin 12.7, hematocrit 37.8, platelets 262,000. Sodium 139, potassium 3.8, BUN 11, creatinine 0.8, bilirubin 1.58, alkaline phosphatase 165. PHYSICAL EXAMINATION: Vitals: Temperature max 98.4 degrees, pulse 74, respirations 13, blood pressure 96/73, O2 saturation 98% on room air. General: No acute distress. HEENT: Normocephalic, atraumatic. Moist mucous membranes. No cervical adenopathy. Cardiovascular: Irregular rhythm, but normal rate. Still no murmurs noted. Pulmonary: Quite minimal bibasilar crackles remain. Abdomen: Soft, nontender, nondistended. Bowel sounds positive. Extremities: Peripheral pulses decreased, but present. Circumferential 1-2+ lower extremity edema, significantly improved from previous, although still present. Neurologic: Cranial nerves grossly intact. No focal deficits identified. Psychiatric: Normal mood and affect. Awake, alert, oriented x3. Skin: Edema as above. Small lower extremity wounds bandaged. No sign of infection at this point. ASSESSMENT AND PLAN: 1. Acute on chronic systolic congestive heart failure. Last known ejection fraction 20. Respiratory status much improved. No longer requiring oxygen. Still some lower extremity edema, but markedly improved over the last few days. Cardiology following. Cardiology considering a stress test on Monday, if he continues to improve. 2. Atrial fibrillation with rapid ventricular response. Has been rate controlled on diltiazem and digoxin. Continue to monitor. 3. Sphingomonas bacteremia, Extended spectrum beta-lactamase Escherichia coli urinary tract infection, lower extremity wound infection. Patient with Sphingomonas bacteremia, which also grew out of his wounds, along with ESBL E. coli in his urine and his wounds. Patient on ertapenem for all of the above. Repeat blood cultures have remained negative. Infectious Disease following. Urinary tract infection likely adequately treated at this point. Wounds appear to be significantly improved and close to adequately treated. Uncertain what duration of therapy ID will decide on for his bacteremia. We will see what they decide on. 4. Subacute left lower extremity deep venous thrombosis identified on ultrasound at presentation. Edema improving. Continue anticoagulation. 5. Fatty liver noted. Stable. 6. Abnormal HIDA scan. Patient with no right upper quadrant pain or tenderness. Bilirubin has been mildly elevated, but continues to trend down. Continue to monitor. Evaluated by Surgery, but given his lack of symptoms and minimal biochemical abnormalities, they felt that surgery was not indicated at that time. Monitor.
[2019-03-02] MEDS: INVANZ 1 GM/NS 1 GM/50 ML IVPB IV SCH (20:52)
--- NOTE | 2019-03-02 21:34 | CARDIOLOGY PROGRESS NOTE ---
DATE: 03/02/2019 SUBJECTIVE: Mr. Dunbar denies any problems other than some tenderness to his bilateral shins. He is tolerating oral intake. PHYSICAL EXAMINATION: Vital signs: He is afebrile. His heart rate is 106, blood pressure 96/73. His I's and O's continue to be negative over the last several days. General: No acute distress. Cardiovascular: He sounds to be in a regular rate and rhythm. He does not sound to have any murmurs. He has trace to 1+ bilateral lower extremity edema. Chest: Exam sounds clear bilaterally. He has no increased work of breathing. PERTINENT DATA: Sodium 139, potassium 3.8, BUN 11, creatinine 0.8. His T-bili is 1.6. ASSESSMENT: Mr. Dunbar is a 58-year-old male who has systolic heart failure. In addition, he has an apical left ventricular thrombus. PLAN: We will continue him on the current medications, as he seems to be rate controlled as far as his atrial fibrillation, and he is on anticoagulation. He is running a negative fluid balance. cc: Linden Jay MD
[2019-03-03] MEDS: LOPRESSOR PO SCH ×3 (05:51→20:53)
[2019-03-03 05:53] LABS: AGAP 7; BUN 11 mg/dL (8-22); CALCIUM 8.4 mg/dL (8.8-10.2); CHLORIDE 101 mmol/L (98-107); COSMO 276; CREATININE 0.8 mg/dL (0.7-1.2); ESTIMATED GFR > 60; GLUCOSE 87 mg/dL (70-104); MAGNESIUM 1.3 mg/dL (1.5-2.7); POTASSIUM 3.7 mmol/L (3.5-5.1); SODIUM 139 mmol/L (136-145); TCO2 31 mmol/L (25-35)
--- NOTE | 2019-03-03 07:50 | Diag Imaging Result Doc PS360 ---
EXAM: CHEST-PORTABLE INDICATION: dyspnea TECHNIQUE: One view COMPARISON: 02/27/2019 FINDINGS: The right lower lobe consolidation continues to improve. No new consolidation is identified. Cardiac silhouette is stable. IMPRESSION: Continued improvement of right basilar consolidation. Electronically signed by Lambert Davis 03/03/2019 7:47 AM
[2019-03-03] MEDS ORDERED: MAGNESIUM SULFATE 2 GM/S.W.I. 2 GM/50 ML IVPB IV ONE (08:13)
[2019-03-03] MEDS: LANOXIN PO SCH (08:43)
[2019-03-03] MEDS: LASIX IV SCH ×2 (08:43→20:58)
[2019-03-03] MEDS: ISORDIL PO SCH ×3 (08:44→20:56)
[2019-03-03] MEDS: LOVENOX SUBQ SCH ×2 (08:44→20:58)
[2019-03-03] MEDS: ALDACTONE PO SCH ×2 (08:44→20:41)
[2019-03-03] MEDS: COLCRYS PO SCH ×2 (08:44→20:41)
[2019-03-03] MEDS: APRESOLINE PO SCH ×3 (08:44→20:51)
[2019-03-03] MEDS: PERICOLACE PO SCH ×2 (08:44→20:56)
[2019-03-03] MEDS: PRINIVIL PO SCH (08:44)
[2019-03-03] MEDS: ZYLOPRIM PO SCH ×2 (08:45→20:52)
[2019-03-03] MEDS: TYLENOL PO PRN (10:48)
--- NOTE | 2019-03-03 15:06 | PROGRESS NOTE ---
DATE: 03/03/2019 INTERVAL HISTORY: The patient's dyspnea essentially resolved. Remains in atrial fibrillation but with good rate control. Still some lower extremity swelling but massively improved from previous. No new complaints. No acute events overnight. REVIEW OF SYSTEMS: Twelve point review of systems negative except as per interval history. LABS: Basic metabolic panel unremarkable aside from magnesium 1.3. VITAL SIGNS: T-max 99.0 degrees, pulse 95, respirations 16, blood pressure 104/81, O2 saturation 96% on room air. IMAGING: Chest x-ray with continued improvement of right basilar consolidation. PHYSICAL EXAMINATION: General: No acute distress. Vitals: As above. HEENT: Normocephalic, atraumatic. Moist mucous membranes. No cervical adenopathy. Cardiovascular: Irregular rhythm but still with good normal rate. No murmurs noted. Pulmonary: Bibasilar crackles essentially resolved. Good air entry. Abdomen: Soft, nontender, nondistended. Bowel sounds positive. Extremities: Peripheral pulses decreased but present. The 1 to 2+ lower extremity edema continues to improve. Neurologic: Cranial nerves grossly intact. No focal deficits identified. Psychiatric: Normal mood and affect. Awake, alert, and oriented x3. Skin: Edema as above. Lower extremity wounds bandaged. No erythema, induration, or other sign of ongoing infection. ASSESSMENT AND PLAN: 1. Acute on chronic systolic congestive heart failure. Last known ejection fraction of 20. Respiratory status much improved. Dyspnea essentially resolved and no longer requiring oxygen. Lower extremity edema is still present but also markedly improved. Cardiology following. They are considering stress test on Monday if he continues to improve. 2. Atrial fibrillation with rapid ventricular response. Has been well rate controlled on digoxin and Toprol. Continue to monitor. Patient on therapeutic Lovenox. We will likely discharge on Eliquis. 3. Sphingomonas bacteremia, extended spectrum beta lactamase Escherichia coli urinary tract infection, lower extremity wound infection. Patient with Sphingomonas bacteremia which also grew out of his wounds, also with extended-spectrum B-lactamase Escherichia coli in wounds and urine. The patient is on ertapenem for all the above. Repeat blood cultures remained negative. Infectious disease following. Urinary tract infection adequate treated. Wound infection also appears to be resolved but awaiting infectious disease recommendations on duration of therapy for his bacteremia. 4. Subacute left lower extremity deep venous thrombosis identified on ultrasound at presentation, although the report does not seem to be crossing over. Edema markedly improved. Continue anticoagulation. 5. Fatty liver. Noted stable. 6. Abnormal HIDA scan. The patient with no right upper quadrant pain or tenderness. Minimally elevated bilirubin on admission trended down. Surgery felt that given his lack of symptoms and minimal biochemical abnormalities, surgery was not indicated at this time. 7. Disposition. Respiratory difficulties essentially resolved. Infectious issues also essentially resolved, pending final recommendations on bacteremia by infectious disease. If stress test tomorrow goes well, then may be able to arrange antibiotics and discharge home.
--- NOTE | 2019-03-03 17:21 | GENERAL SURGERY PROGRESS NOTE ---
DATE: 03/03/2019 SUBJECTIVE: Doing okay. From a cardiac standpoint seems to be improving. Denies abdominal pain. Tolerating diet, having bowel function. No fevers. No tachycardia. OBJECTIVE: Vitals: Blood pressure is 104/81. General: He is alert. Cardiovascular: Normal rate. Pulmonary: No increased work of breathing. Skin: Exam shows no jaundice. Abdomen: Soft, nontender, nondistended. LFTs yesterday showed downtrending bilirubin. AST, ALT, alkaline phosphatase about the same. ASSESSMENT AND PLAN: A 58-year-old gentleman. Initially had some right upper quadrant pain and heart failure. Suspect this was hepatic congestion, although his HIDA scan did seem abnormal. I do not suspect acute cholecystitis or complications associated with gallstones. We will continue to follow him closely. I would advise against cholecystectomy at this point. Continue to follow along. cc: Apolinar Avalos MD
[2019-03-03] MEDS: INVANZ 1 GM/NS 1 GM/50 ML IVPB IV SCH (21:45)
[2019-03-04] MEDS: LOPRESSOR PO SCH ×3 (04:53→20:17)
[2019-03-04] MEDS: PRINIVIL PO SCH ×3 (05:28→20:16)
[2019-03-04] MEDS: LOVENOX SUBQ SCH ×2 (08:27→20:26)
[2019-03-04] MEDS: LANOXIN PO SCH (08:27)
[2019-03-04] MEDS: ZYLOPRIM PO SCH ×2 (08:27→20:17)
[2019-03-04] MEDS: ALDACTONE PO SCH ×2 (08:27→20:16)
[2019-03-04] MEDS: COLCRYS PO SCH ×2 (08:27→20:16)
[2019-03-04] MEDS: LASIX IV SCH ×2 (08:27→20:16)
[2019-03-04] MEDS: ISORDIL PO SCH ×3 (08:30→16:45)
[2019-03-04] MEDS: PERICOLACE PO SCH ×2 (08:30→20:26)
[2019-03-04] MEDS: APRESOLINE PO SCH ×3 (08:30→16:45)
--- NOTE | 2019-03-04 08:49 | CARDIOLOGY PROGRESS NOTE ---
DATE: 03/04/2019 CHIEF COMPLAINT: Shortness of breath, swelling. SUBJECTIVE: Mr. Dunbar continues to gradually improved. His weight has dropped to 202 pounds. He is tolerating all of his medications. He just feels a little tired. OBJECTIVE: Vital signs: Blood pressure is 91/61, temperature 98.8, pulse 65, respirations 20. He is awake, alert, no distress. HEENT: Unremarkable. Chest sounds clear to auscultation and percussion. Heart sounds are irregularly irregular. Abdomen: Nontender. Less distended. Extremities showed less edema. Neurologic: Follows commands. Moves all 4 extremities. DIAGNOSTIC DATA: Blood work today shows sodium 139, potassium 3.7, BUN is 11, creatinine 0.8, magnesium today is 1.3. IMPRESSION: 1. The patient presented with decompensated congestive heart failure, systolic, with apical left ventricular thrombus. Etiology unclear. 2. Persistent atrial fibrillation. 3. Deep venous thrombosis of left leg. 4. Septicemia, Sphingomonas paucimobilis. 5. Urinary tract infection, positive for Escherichia coli with extended spectrum beta lactamase. 6. Obesity. 7. CT evidence of coronary atherosclerosis. RECOMMENDATIONS: Today, we are going to proceed with a myocardial perfusion stress test. A CT scan of the chest done on 02/23/2019 showed that he had scattered calcification along the course of the LAD in its proximal and mid segment. There was also a slight calcification of the right coronary artery. Hopefully, the stress test will shed some light into what the etiology of his heart failure may be. The magnesium level was done yesterday. I am going to request a followup blood work this morning. We will review that and advise. Thank you for the opportunity to participate in his evaluation. cc: Kareem Salazar MD [facility]
--- NOTE | 2019-03-04 08:56 | INFECTIOUS DISEASE PROGRESS NO ---
DATE: 03/04/2019 PRESENT ILLNESS: The patient has Sphingomonas bacteremia. He also has an extended spectrum beta lactamase producing E coli urinary tract infection and finally, the patient has leg wounds with the same extended spectrum beta lactamase producing E coli and another organism by the name of Zohreh. It seems now that the patient most likely does not have acute cholecystitis, even though his HIDA scan showed no uptake. The patient appears to have a right lower lobe consolidation which could well be pneumonia and also may have occurred by hematogenous infection while the patient was bacteremic or possibly the patient first had pneumonia and then became bacteremic. MEDICATIONS: This is day 5 of ertapenem treatment with day 1 being the first day that the patient's repeat blood cultures were sterile. PHYSICAL EXAMINATION: Vital Signs: Temperature is 98.8 degrees, pulse 65, respirations 20, blood pressure is 91/61. General: This is an obese, middle-aged male. He is in no acute distress. Head/eyes/ears/nose/throat: He can hear my spoken words and see near objects. He does not have any white patches in his mouth. Neck: He does not have any neck pain when he moves his head and neck. Lungs: Clear to auscultation. Cardiovascular: Heart rate is irregular. Abdomen: Soft and nontender. Extremities: Both legs are less edematous. Both wounds are beginning to show some healing. Neurologic: The patient is awake. He can move his extremities. There is no tremor. LAB AND X-RAY: The patient's chest x-ray from yesterday showed improvement of the right basilar consolidation. The CBC shows a white count of 6260, hemoglobin 12.7, platelet count 262,000. Creatinine is 0.8, GFR is greater than 60. ASSESSMENT AND PLAN: The patient has bacteremia, urinary tract infection, leg wound infections and pneumonia. It is felt now that the patient does not have cholecystitis. The plan is to continue ertapenem for a total of 14 days of treatment with day 1 being the first day that the patient's repeat blood cultures were sterile. As it stands now the ertapenem has been used has been treating the patient for 5 days, which means that he has 9 days left of treatment. COMORBIDITIES: He has hypertension, obesity and congestive heart failure. cc: Ish Pickett MD
[2019-03-04 09:51] LABS: AGAP 11; BUN 10 mg/dL (8-22); CALCIUM 8.2 mg/dL (8.8-10.2); CHLORIDE 100 mmol/L (98-107); COSMO 277; CREATININE 0.8 mg/dL (0.7-1.2); ESTIMATED GFR > 60; GLUCOSE 76 mg/dL (70-104); POTASSIUM 4.2 mmol/L (3.5-5.1); SODIUM 140 mmol/L (136-145); TCO2 29 mmol/L (25-35)
[2019-03-04] MEDS ORDERED: LEXISCAN ONE (10:57)
[2019-03-04] MEDS ORDERED: MAGNESIUM SULFATE 4 GM/S.W.I. 4 GM/100 ML IVPB IV ONE (12:31)
[2019-03-04] MEDS ORDERED: NS 250 ML ONE (13:58)
[2019-03-04 14:14] LABS: BASO# 0.08 X1000 (0.0-0.2); BASO% 1.1 % (0.0-0.8); EOS# 0.05 X1000 (0.0-0.7); EOS% 0.7 % (0.0-10.0); HEMATOCRIT 41.3 % (42.0-52.0); HEMOGLOBIN 13.7 g/dL (14.0-18.0); IMM GRAN# 0.02 X1000 (0.0-0.04); IMM GRAN% 0.3 % (0.0-0.5); LYMPH# 1.97 X1000 (1.2-3.4); LYMPH% 26.8 % (20.5-51.1); MCH 28.4 PG (27-31); MCHC 33.2 g/dL (33-37); MCV 85.7 FL (81-99); MONO# 0.46 X1000 (0.11-0.59); MONO% 6.3 % (1.7-9.3); NEUT# 4.78 X1000 (1.4-6.5); NEUT% 64.8 % (42.2-75.2); PLT 292 X1000 (130-400); RBC 4.82 XMIL (4.7-6.1); RDW 16.4 % (11.5-14.5); WBC 7.36 X1000 (4.8-10.8)
[2019-03-04 14:23] LABS: INR 0.98; PROTIME 13.8 Seconds (11.0-16.0)
--- NOTE | 2019-03-04 15:24 | Diag Imaging Result Doc PS360 ---
CHEST-PORTABLE - 03/04/2019 INDICATION: PICC placement COMPARISON: 03/03/2019 FINDINGS: There is a left PICC line in good position with the catheter tip at the lower SVC. There is improvement in the mild cardiomegaly and pulmonary vascular congestion. No infiltrates in this time. No large effusions. IMPRESSION: Good left PICC line placement. Electronically signed by Abdifatah Fitzgerald 03/04/2019 3:21 PM
--- NOTE | 2019-03-04 17:40 | PROGRESS NOTE ---
DATE: 03/04/2019 INTERVAL HISTORY: Patient NPO for stress test today. Dyspnea remains resolved. Remains in atrial fibrillation with good rate control. Continued slow improvement in his lower extremity swelling. No new complaints, no acute events overnight. REVIEW OF SYSTEMS: Twelve point review of systems negative except as per interval history. LABS: WBC 7.3, hemoglobin 13.7, hematocrit 41.3, platelets 292,000. INR 0.9. Basic metabolic panel unremarkable aside from magnesium 1.5, calcium 8.2. VITALS: T-max 99, pulse 99, respirations 19, blood pressure 126/96, O2 saturation 96% on room air. PHYSICAL EXAM: General: No acute distress. Vitals as above. HEENT: Normocephalic, atraumatic. Moist mucous membranes. No cervical adenopathy. Cardiovascular: Irregular rhythm but normal rate. No murmurs noted. Pulmonary: Clear to auscultation bilaterally at this point. Abdomen: Soft, nontender, nondistended. Bowel sounds positive. Extremities: Peripheral pulses decreased but present, 1-2+ lower extremity edema bilaterally markedly improved from a few days ago, slightly improved from yesterday. Neurologic: Cranial nerves grossly intact. No focal deficits identified. Psychiatric: Normal mood and affect. Awake, alert, oriented x3. Skin: As above small lower extremity wounds bandaged. No erythema, induration or other sign of ongoing infection. ASSESSMENT AND PLAN: 1. Acute on chronic systolic congestive heart failure. Last known ejection fraction 20, respiratory status much improved no longer requiring any oxygen and no further dyspnea. Still some lower extremity edema but massively improved from previous. Cardiology following. Getting stress test today based on results may need heart catheterization or evaluation for bypass. 2. Atrial fibrillation with rapid ventricular response. Patient has been well controlled on digitalis, Toprol. Continue to monitor. Patient has been on therapeutic Lovenox. Initially planned on discharge on Eliquis as patient was thought to have VA benefits but informed the patient may not have any insurance so will go ahead and start him on Coumadin. 3. Sphingomonas bacteremia, extended spectrum beta-lactamase Escherichia coli urinary tract infection, lower extremity wound infection. Patient with Sphingomonas bacteremia which also grew out of his wounds and also had extended spectrum beta-lactamase Escherichia coli in both his urine and in the wounds. Patient on ertapenem for all the above. Adequately treated urinary tract infection and skin infection but will need several days yet for his bloodstream infection. The patient has gotten peripherally inserted central catheter line and we are working on setting up his antibiotics. Infectious Disease following. 4. Subacute left lower extremity deep vein thrombosis identified on ultrasound presentation. Edema markedly improved. Continue anticoagulation as above. 5. Fatty liver noted and stable. 6. Abnormal HIDA scan. Patient with no right upper quadrant pain or tenderness. Minimally elevated bilirubin on admission trended down. Surgery evaluated the patient and felt that given his lack of symptoms and minimal biochemical abnormalities surgery was not indicated at this time. 7. Disposition. Respiratory difficulties resolved, skin and urinary tract infections resolved. Working on arrangements for his antibiotics given lack of insurance. Awaiting results of stress test to see if he may need further cardiac workup. Starting on Coumadin for anticoagulation.
[2019-03-04] MEDS: INVANZ 1 GM/NS 1 GM/50 ML IVPB IV SCH (20:16)
[2019-03-04] MEDS: COUMADIN PO SCH (20:26)
--- NOTE | 2019-03-04 21:36 | Diag Imaging Result Document ---
PROCEDURE NAME: MYOCARDIAL PERF SCAN, STR/REST - 03/04/2019 STUDY: Same-day rest/stress Lexiscan protocol. INDICATION: Ischemic cardiomyopathy. DESCRIPTION: Resting images performed after injection of technetium 99 sestamibi 14 mCi. Stress performed with Lexiscan 0.4 mg followed by injection of technetium 99 sestamibi 42.5 mCi. Multiple tomographic views of the cardiac structures were obtained following the completion of the protocol. SUMMARY OF THE ELECTROCARDIOGRAPHIC PORTION OF THE STUDY: Resting ECG shows atrial fibrillation, rate 90 beats per minute, resting blood pressure 115/73. Resting ECG shows inferior scar with low voltage PVCs and nonspecific T wave abnormality. During the protocol, the heart rate increased to 118 beats per minute. Blood pressure dropped to 106/80. The ECG showed really no significant changes. The patient reported no symptoms. Following the completion of the chest, the heart rate and blood pressure returned back to their baseline. Frequent PVCs were noted throughout the study. SUMMARY OF THE MYOCARDIAL PERFUSION PORTION OF THE STUDY: Poststress tomographic views of the left ventricle showed a severe focal apical anterior/inferior defect. There is also a moderately extensive mild to moderate in severity inferior wall defect. The rest images showed that there is no reversibility. The defect is fixed. The polar plots revealed the same. There is a severe focal apical anterior/inferior scar. This involves a relatively limited area of myocardium plus a mild to moderate defect in the inferior wall that is fixed. The latter could relate to attenuation defect. Gated SPECT shows resting ejection fraction of 44%, poststress 43%. The lung/heart ratio is normal. TID is normal. 16 bin gating protocol was used. Using the Myometrix protocol the resting ejection fraction was 32%, poststress 35%. There is akinesis of the apical anterior segment. SUMMARY: This study shows: 1. Abnormal rest electrocardiogram with a nonspecific response to infusion of Lexiscan. 2. Abnormal poststress myocardial perfusion scan. There is scintigraphic suggestion of an apical anterior/inferior scar, transmural, limited, plus attenuation of the inferior wall. 3. Impaired left ventricular systolic function, ejection fraction poststress 43% using the [employer] protocol and 35% using the Myometrix protocol. Focal wall motion abnormality is noted. This study is consistent with focal infarct. cc: Kareem Salazar MD [facility]
[2019-03-05] MEDS: LOPRESSOR PO SCH ×3 (04:05→21:11)
[2019-03-05 06:05] LABS: INR 0.97; PROTIME 13.7 Seconds (11.0-16.0)
[2019-03-05 06:35] LABS: AGAP 7; BUN 10 mg/dL (8-22); CALCIUM 8.6 mg/dL (8.8-10.2); CHLORIDE 100 mmol/L (98-107); COSMO 272; CREATININE 0.7 mg/dL (0.7-1.2); ESTIMATED GFR > 60; GLUCOSE 91 mg/dL (70-104); POTASSIUM 3.5 mmol/L (3.5-5.1); SODIUM 137 mmol/L (136-145); TCO2 30 mmol/L (25-35)
[2019-03-05] MEDS: LOVENOX SUBQ SCH ×2 (09:03→21:10)
[2019-03-05] MEDS: ALDACTONE PO SCH ×2 (09:03→21:10)
[2019-03-05] MEDS: APRESOLINE PO SCH ×3 (09:05→16:49)
[2019-03-05] MEDS: PERICOLACE PO SCH ×2 (09:06→21:10)
[2019-03-05] MEDS: COLCRYS PO SCH ×2 (09:06→21:10)
[2019-03-05] MEDS: PRINIVIL PO SCH ×2 (09:06→21:11)
[2019-03-05] MEDS: LASIX PO SCH ×2 (09:06→21:10)
[2019-03-05] MEDS: ISORDIL PO SCH ×3 (09:06→16:49)
[2019-03-05] MEDS: ZYLOPRIM PO SCH ×2 (09:06→21:10)
[2019-03-05] MEDS: LANOXIN PO SCH (09:06)
[2019-03-05] MEDS: KLOR-CON PO SCH ×2 (10:44→14:00)
--- NOTE | 2019-03-05 13:11 | PROGRESS NOTE ---
DATE: 03/05/2019 INTERVAL HISTORY: No acute events. His pulse has been 60s to 100s. Blood pressure in 90s systolic. The patient had a nuclear medicine stress test which had detected apical inferoanterior scar without any inducible ischemia. Currently, patient denies any chest pain or shortness of breath. His lower extremity edema has significantly decreased. We discussed about pending insurance before deciding the discharge plan since he needs IV antibiotics as well as anticoagulation. VITALS: Temperature 98.5 degrees, pulse 63, respiratory rate 18, blood pressure 127/95. He is saturating 99% on room air. PHYSICAL EXAMINATION: Not in any acute distress. Oral cavity is moist.Lungs: Air entry bilaterally equal. No wheeze, rhonchi, crackles. Cardiovascular: S1, S2 normal. Heart rate appears irregular. No murmur, rub, or gallop. Abdomen: Soft, nontender. He does have bilateral lower extremity edema. Input and output suggest -2 L. LABS: Suggestive of normal electrolyte profile except potassium of 3.5, which is being repleted. ASSESSMENT AND PLAN: 1. Acute systolic congestive heart failure with suspected chronic systolic congestive heart failure when patient was in [place]. Ejection fraction of 20%. Nuclear medicine stress test had apical scar on stress test. Change intravenous to oral Lasix. Continue spironolactone, lisinopril, metoprolol. I will appreciate Cardiology recommendation if he would need a LifeVest at the time of discharge. 2. Persistent atrial fibrillation. His ventricular response has been well controlled now. Continue metoprolol and digoxin. He is on warfarin pending insurance issues. My plan is to either discharge him on enoxaparin plus warfarin for his left ventricular apical thrombus or on Eliquis. 3. Sphingomonas sepsis with ESBL urinary tract infection. Continue intravenous ertapenem as per ID recommendation. He still has 8 days of antibiotics. His last day of antibiotics would be 03/14/2019. He has a left PICC line pending insurance. We will decide home antibiotic infusion versus the patient coming to the hospital in the emergency room every day to complete antibiotic course. 4. Subacute left lower extremity DVT and left ventricular thrombus. Anticoagulation plan with enoxaparin plus warfarin or Eliquis based on insurance issues. 5. Disposition: Patient is medically ready to be discharged. However, I am waiting for update from Podiatry Assistant about insurance so that I could decide medications at the time of discharge. Nursing team and charge nurse have been made aware of this. Plan of care discussed with the patient and the nursing team. All of their questions have been answered. cc: Feliberto Rocha MD
--- NOTE | 2019-03-05 14:04 | INFECTIOUS DISEASE PROGRESS NO ---
DATE: 03/05/2019 PRESENT ILLNESS: The patient has a Sphingomonas bacteremia. He also has an extended spectrum beta lactamase producing E. coli urinary tract infection and finally, the patient has leg wounds infected with the extended spectrum beta lactamase producing E. coli and another organism by the name of Zohreh. The patient at one time was considered to have cholecystitis but the likelihood of that seems to be very slim. The patient also appears to have a right lower lobe consolidation which may be pneumonia which is hematogenous in origin from the patient's Sphingomonas bacteremia. MEDICATIONS: This is the 6th day of treatment with ertapenem. PHYSICAL EXAMINATION: Vital Signs: Temperature is 98.1 degrees, pulse 97, respirations 23, blood pressure 89/64. General: This is an obese, middle-aged male. He is in no acute distress. Head/eyes/ears/nose/throat: He can hear my spoken words and see near objects. He does not have any white coating on his tongue. Neck: He does not have pain in the neck when he moves his head or neck. Lungs: Clear to auscultation. Cardiovascular: Heart rate is irregular. Abdomen: Soft and nontender. Extremities: Both of the patient's leg wounds are getting smaller in size and there is no purulence or necrosis. Neurologic: The patient is awake. He can move his extremities. He is able to ambulate. He does not have a tremor. LAB AND X-RAY: There is no CBC back for today at this time. The creatinine is 0.7. GFR is greater than 60. There is no new radiographic study. ASSESSMENT AND PLAN: Patient has a bacteremia, urinary tract infection, and leg wound infections and possible pneumonia. The patient does not have cholecystitis. My original plan which I discussed with the patient was treat him for 14 days with ertapenem. This is day 6 of ertapenem and so the patient would need 9 more days of treatment. When I came in today, I told the patient about the treatment and I discussed with him yesterday about having a PICC installed and as mentioned above, doing his home antibiotics IV. But today when I talked to him, he was not sure that he wants to do the IV antibiotics. He wants to settle for oral antibiotics. I told him that I thought it would be better to continue with IV ertapenem, especially since one of the organisms is not susceptible to any other antibiotic that we could use except ertapenem. The patient is going to make up his mind now about if he wants to do the IV antibiotics or if he is going to just do what we can cover with an oral antibiotic. COMORBIDITIES: The patient has hypertension. He is obese, and he also has congestive heart failure. cc: Ish Pickett MD
[2019-03-05] MEDS: INVANZ 1 GM/NS 1 GM/50 ML IVPB IV SCH (21:10)
[2019-03-05] MEDS: COUMADIN PO SCH (21:11)
[2019-03-06] MEDS: LOPRESSOR PO SCH ×3 (04:54→21:10)
[2019-03-06] MEDS: LANOXIN PO SCH (08:13)
[2019-03-06] MEDS: PRINIVIL PO SCH ×2 (08:13→21:10)
[2019-03-06] MEDS: PERICOLACE PO SCH ×2 (08:13→21:09)
[2019-03-06] MEDS: ISORDIL PO SCH ×4 (08:13→16:36)
[2019-03-06] MEDS: LASIX PO SCH ×2 (08:13→21:10)
[2019-03-06] MEDS: COLCRYS PO SCH (08:13)
[2019-03-06] MEDS: ALDACTONE PO SCH ×2 (08:13→21:09)
[2019-03-06] MEDS: APRESOLINE PO SCH ×3 (08:13→16:35)
[2019-03-06] MEDS: ZYLOPRIM PO SCH ×2 (08:13→21:09)
[2019-03-06] MEDS: LOVENOX SUBQ SCH ×2 (08:13→21:09)
[2019-03-06 08:27] LABS: INR 1.07; PROTIME 14.7 Seconds (11.0-16.0)
--- NOTE | 2019-03-06 10:33 | PROGRESS NOTE ---
DATE: 03/06/2019 INTERVAL HISTORY: No acute events overnight. After discussing with the Care Management team and patient, we had decided to keep him inside the hospital for oral Coumadin bridge. SUBJECTIVE: He is feeling fine. Denies any new complaints. VITALS: Temperature 98.4 degrees, pulse 94, respiratory rate 23, blood pressure 130/90, saturating 96% on room air. PHYSICAL EXAMINATION: General: Does not appear in any acute distress. Oral cavity is moist. Air entry bilaterally equal. No wheezes, rhonchi, crackles. S1, S2 normal. Irregularly irregular. No murmur, rub, or gallop. Abdomen is soft, nontender. Bilateral lower extremity edema. He is alert oriented x3. Mood appears appropriate and pleasant. INTAKE AND OUTPUT: Input and output suggests he was -2 0.1 L yesterday. He is positive 130 mL so far today. LABORATORIES: No CBC today. INR of 1.07. No BMP today. MICROBIOLOGY: No new microbiological data. RADIOLOGICAL DATA: No new imaging. ASSESSMENT AND PLAN: 1. Acute systolic congestive heart failure with suspected chronic systolic congestive heart failure with ejection fraction of 20%. Nuclear medicine stress test suggesting apical and anteroinferior scar which could have been related to suspected previous embolic phenomenon involving distal LAD. Continue oral Lasix, spironolactone, lisinopril, metoprolol, and outpatient Cardiology follow-up. 2. Persistent atrial fibrillation with well-controlled ventricular rate. Continue metoprolol, digoxin, and warfarin for primary CVA prophylaxis. 3. Left ventricular apical thrombus and left lower extremity deep venous thrombosis. Continue warfarin with goal of INR 2 to 3 with enoxaparin bridge. Plan is to discharge him on warfarin since he did not have insurance or primary care provider to continue Eliquis beyond a few weeks' time. 4. Sphingomonas gram negative sepsis likely from cholecystitis, extended- spectrum beta-lactamase acute cystitis and E coli wound infection. Continue IV ertapenem . First day of negative culture was 02/27/2019. He has a left PICC line. Considering his cardiac comorbidities, no current surgical intervention is planned. DISPOSITION: I will transfer patient to routine medical floor. The patient is medically ready to be discharged; however, he does not have insurance to cover enoxaparin nor extended period of Eliquis. Though we could give him 1 month of Eliquis, it is uncertain to patient if he would be able to get Eliquis beyond that, so we decided to keep him on warfarin. The plan is for patient to go back to [place] within a couple of weeks' time after discharge and continue his medical care. I explained to him about his low ejection fraction, need for close Cardiology monitoring, and risk of sudden cardiac , and I answered all of his questions. cc: Feliberto Rocha MD [facility]
--- NOTE | 2019-03-06 13:47 | INFECTIOUS DISEASE PROGRESS NO ---
DATE: 03/06/2019 PRESENT ILLNESS: The patient has a Sphingomonas bacteremia. He also has an extended spectrum beta lactamase producing E. coli urinary tract infection. He also has an infection on his legs caused by the extended spectrum beta lactamase producing E. coli and Raoultella. MEDICATIONS: This is the 10th day of treatment with ertapenem but it is the 7th day of treatment from when the patient's blood cultures first turned negative. PHYSICAL EXAMINATION: Vital Signs: Temperature is 98.4 degrees, pulse 90, respirations 23, blood pressure 131/93. General: This is an obese, middle-aged male. He is in no acute distress. Head, Eyes, Ears, Nose, and Throat: He can hear my spoken words and see near objects. He does not have any white patches in his mouth. Neck: No meningismus. Lungs: Clear to auscultation. Cardiovascular: Heart rate is irregular. Abdomen: Soft and nontender. Extremities: The patient's legs are much smaller due to diuresis than they had been and both wounds on his legs are healing well. Neurologic: The patient is alert. He talks in a coherent fashion. He does not have a tremor. LAB AND X-RAY: There is no lab or x-ray for today. ASSESSMENT AND PLAN: The patient has bacteremia, urinary tract infection, leg wound infections, and possible pneumonia. The plan is to consider ertapenem for 7 more days. COMORBIDITIES: The patient has hypertension and congestive heart failure. He also is obese. cc: Ish Pickett MD
[2019-03-06 19:13] LABS: MAGNESIUM 1.8 mg/dL (1.5-2.7); POTASSIUM 3.8 mmol/L (3.5-5.1)
[2019-03-06] MEDS ORDERED: KLOR-CON PO ONE (19:30)
[2019-03-06] MEDS: MAGNESIUM SULFATE 2 GM/S.W.I. 2 GM/50 ML IVPB IV SCH ×2 (20:00→22:44)
[2019-03-06] MEDS: COUMADIN PO SCH (21:10)
[2019-03-06] MEDS: INVANZ 1 GM/NS 1 GM/50 ML IVPB IV SCH (21:13)
[2019-03-07] MEDS: LOPRESSOR PO SCH ×2 (04:45→13:50)
[2019-03-07 07:16] LABS: BASO# 0.06 X1000 (0.0-0.2); BASO% 1.1 % (0.0-0.8); EOS# 0.11 X1000 (0.0-0.7); HEMATOCRIT 36.3 % (42.0-52.0); HEMOGLOBIN 11.8 g/dL (14.0-18.0); IMM GRAN# 0.02 X1000 (0.0-0.04); IMM GRAN% 0.4 % (0.0-0.5); LYMPH# 2.06 X1000 (1.2-3.4); LYMPH% 37.2 % (20.5-51.1); MCHC 32.5 g/dL (33-37); MCV 86.2 FL (81-99); MONO# 0.51 X1000 (0.11-0.59); MONO% 9.2 % (1.7-9.3); MPV 11.6 FL (7.4-10.4); NEUT# 2.78 X1000 (1.4-6.5); NEUT% 50.1 % (42.2-75.2); PLT 218 X1000 (130-400); RBC 4.21 XMIL (4.7-6.1); WBC 5.54 X1000 (4.8-10.8)
[2019-03-07 07:28] LABS: INR 1.17; PROTIME 15.8 Seconds (11.0-16.0)
[2019-03-07 07:40] LABS: AGAP 9; BUN 10 mg/dL (8-22); CALCIUM 8.6 mg/dL (8.8-10.2); CHLORIDE 102 mmol/L (98-107); COSMO 272; CREATININE 0.7 mg/dL (0.7-1.2); ESTIMATED GFR > 60; GLUCOSE 83 mg/dL (70-104); POTASSIUM 4.2 mmol/L (3.5-5.1); SODIUM 137 mmol/L (136-145); TCO2 26 mmol/L (25-35)
[2019-03-07] MEDS: PERICOLACE PO SCH (10:19)
[2019-03-07] MEDS: APRESOLINE PO SCH ×3 (10:20→16:35)
[2019-03-07] MEDS: ZYLOPRIM PO SCH ×2 (10:21→20:40)
[2019-03-07] MEDS: ISORDIL PO SCH ×3 (10:21→16:35)
[2019-03-07] MEDS: LASIX PO SCH (10:21)
[2019-03-07] MEDS: PRINIVIL PO SCH (10:21)
[2019-03-07] MEDS: ALDACTONE PO SCH ×2 (10:21→20:40)
[2019-03-07] MEDS: COLCRYS PO SCH (10:22)
[2019-03-07] MEDS: LOVENOX SUBQ SCH ×2 (10:23→20:40)
[2019-03-07] MEDS: LANOXIN PO SCH (10:24)
--- NOTE | 2019-03-07 13:06 | PROGRESS NOTE ---
DATE: 03/07/2019 INTERVAL HISTORY: No acute events, except he did have runs of about 7 to 8 beats of nonsustained ventricular tachycardia yesterday. His potassium and magnesium were obtained, and he was given potassium and magnesium supplements. He did not have any symptoms at that time. SUBJECTIVE: He is denying any complaints. He denies any chest pain or shortness of breath. I again discussed with him about pathology of heart failure, and I answered all of his questions. His pedal edema is decreasing. OBJECTIVE: Vital Signs: He has been afebrile, pulse irregularly irregular at 94 per minute, respiratory rate 15, blood pressure 104/84, saturating 99% on room air. General: Does not appear in any acute distress. Well-built man. Lungs: Air entry bilaterally equal. No wheeze, rhonchi, crackles. Cardiovascular: S1, S2 normal. Irregularly irregular. No murmur or gallop. Abdomen: Soft, nontender. Extremities: Bilateral lower extremity edema, which is significantly reduced, extending up to upper simpson level. Neurologic: He is alert and oriented x3. Pleasant mood. Intake and output suggest -960 mL so far today. He has had more than 15 kg of weight loss since hospital admission. LABORATORY DATA: Labs suggestive of normocytic anemia, normal platelet count, normal electrolytes. MICROBIOLOGY: No positive data. IMAGING: No new imaging. ASSESSMENT AND PLAN: 1. Acute systolic congestive heart failure on chronic systolic congestive heart failure with ejection fraction of 20% with likely ischemic cardiomyopathy. Nuclear Medicine stress test has apical anteroinferior scar, which could have been related to previous embolic phenomenon involving distal left anterior descending. Continue oral Lasix, spironolactone, lisinopril, metoprolol, and outpatient Cardiology followup. 2. Persistent atrial fibrillation with well-controlled ventricular rate. Continue metoprolol, digoxin, and warfarin. For primary cerebrovascular accident prophylaxis, he is on enoxaparin as well as we await therapeutic INR. 3. Left ventricular apical thrombus and left lower extremity deep venous thrombosis. Continue enoxaparin and warfarin. Goal is INR of 2 to 3. 4. Sphingomonas sepsis from cholecystitis, extended spectrum beta-lactamase acute cystitis, and Escherichia coli wound infection. Continue intravenous ertapenem. First day of negative blood culture was 02/27/2019. He has a left peripherally-inserted central catheter line. Considering his cardiac condition, no acute surgical intervention were planned for his cholecystitis. 5. Disposition. Awaiting therapeutic INR. At that point, will consider discharging him once his INR is more than 2 for at least 24 hours. Plan of care discussed with the patient, and all of his questions have been satisfactorily answered. cc: Feliberto Rocha MD
--- NOTE | 2019-03-07 14:58 | INFECTIOUS DISEASE PROGRESS NO ---
DATE: 03/07/2019 PRESENT ILLNESS: Mr. Dunbar is being treated for a Sphingomonas bacteremia, and extended spectrum beta lactamase producing Escherichia coli urinary tract infection. He also has lower extremity wounds are dry and healing. MEDICATIONS: Today is day 8 of treatment for his bacteremia using ertapenem 1 g IV every 24 hours. PHYSICAL EXAMINATION: Vital Signs: Temperature is 98.2 degrees, pulse rate 94, respiratory rate 15, blood pressure 104/84. O2 saturation is 99% on room air. General: This is a chronically ill- appearing, middle-aged gentleman. He is sitting up in the bed currently, in no acute distress. HEENT: Atraumatic, normocephalic. Oral mucous membranes are pink and moist. Conjunctivae are pink. Sclerae are icteric. Neck: Supple. Trachea is midline. Cardiovascular: Irregularly irregular with atrial fibrillation on the monitor. Respiratory: Lung sounds are clear to auscultation bilaterally. No work of breathing is noted. Abdomen: Soft, round and nontender. Bowel sounds are active. Extremities: There a trace pretibial edema noted bilaterally with some mild wounds to the legs which are dry and healing with some mild eschar noted. There is a PICC line in place to the left upper arm, that site is without edema, erythema, or drainage. Neurologic: He is awake, alert and oriented. Able to move around in the bed independently. LABORATORY AND X-RAY: Today his white count is 5.54, hemoglobin 11.8, platelet count 218,000. Creatine is 0.7. Estimated GFR is greater than 60. Previously his blood cultures grew Sphingomonas and his urine has grown an Escherichia coli that was extended spectrum beta lactamase producing. No imaging reports today. ASSESSMENT AND PLAN: Mr. Sheehan is being treated for bacteremia and a urinary tract infection. Today is day 8 of his treatment for his bacteremia. He will need 6 weeks due to the metal he has in his jaws which could have been hematogenously infected. At this point, the plan is to await a therapeutic INR before discharge. I have gone ahead and put orders on the front of the chart for the patient to have a daily dose of ertapenem to be given an outpatient through March 13 and for lab work to be drawn on the . After his last dose of antibiotic on the , orders have also been provided to discontinue the PICC line. At that point, he will take Keflex 500mg p.o. every 8 hours for a total of 4 weeks. His plan is to travel back to [place], where he lives, in the next week or two. He will need to follow up with his doctor at home. I've gone over all of these plans with him at length, and he has stated understanding. These plans have been discussed with and recommended by Dr. Pickett. COMORBIDITIES: Congestive heart failure and atrial fibrillation. Dictated by ALLA Seo for Ish Pickett MD cc: Ish Pickett MD [facility]
[2019-03-07] MEDS: TYLENOL PO PRN (16:36)
[2019-03-07] MEDS: COUMADIN PO SCH (20:40)
[2019-03-07] MEDS: INVANZ 1 GM/NS 1 GM/50 ML IVPB IV SCH (20:41)
[2019-03-08] MEDS: PERICOLACE PO SCH ×3 (03:45→20:39)
[2019-03-08] MEDS: LASIX PO SCH ×3 (03:45→20:39)
[2019-03-08] MEDS: PRINIVIL PO SCH ×2 (03:45→09:21)
[2019-03-08] MEDS: LOPRESSOR PO SCH ×4 (03:45→20:39)
[2019-03-08 06:52] LABS: INR 1.29; PROTIME 17.1 Seconds (11.0-16.0)
[2019-03-08] MEDS: ZYLOPRIM PO SCH (09:21)
[2019-03-08] MEDS: ISORDIL PO SCH ×3 (09:21→17:30)
[2019-03-08] MEDS: APRESOLINE PO SCH ×3 (09:21→17:30)
[2019-03-08] MEDS: LOVENOX SUBQ SCH ×2 (09:22→20:39)
[2019-03-08] MEDS: ALDACTONE PO SCH ×2 (09:22→20:39)
[2019-03-08] MEDS: COLCRYS PO SCH (09:22)
[2019-03-08] MEDS: LANOXIN PO SCH (09:23)
[2019-03-08] MEDS ORDERED: LANOXIN PO ONE (16:51)
[2019-03-08] MEDS: INVANZ 1 GM/NS 1 GM/50 ML IVPB IV SCH (20:38)
[2019-03-08] MEDS: COUMADIN PO SCH (20:39)
--- NOTE | 2019-03-08 20:55 | PROGRESS NOTE ---
DATE: 03/08/2019 INTERVAL HISTORY: He did have heart rate as low as 47 and he was hypotensive, so his metoprolol and digoxin doses were held. I am going to go ahead and give him his digoxin dose. SUBJECTIVE: He denies any new complaints. We discussed about heart failure and its complication. Family is at bedside. All of the questions have been answered. OBJECTIVE: Vital Signs: Temperature 98.3 degrees, pulse 66, respiratory 20, blood pressure 94/74. He is saturating 100% on room air. General: Does not appear in any acute distress. Oral Cavity: Moist. Lungs: Air entry bilaterally equal. No wheeze, rhonchi, crackles. Cardiovascular: S1, S2. Irregularly irregular. No murmur, rub, or gallop. Abdomen: Soft, nontender. Extremities: His bilateral lower extremity edema is significantly decreasing. Neurologic: He is alert and oriented x3. LABS: His INR is 1.2 today. His CBC and BMP are not drawn today. ASSESSMENT AND PLAN: 1. Acute systolic congestive heart failure on chronic systolic congestive heart failure, with ejection fraction of 20%, likely because of ischemic cardiomyopathy. Nuclear medicine stress test has anteroapical scar. Continue oral Lasix, spironolactone, lisinopril, metoprolol, and outpatient cardiology followup. He would need outpatient repeat echocardiogram and need evaluation for automatic implantable cardiac defibrillator or pacemaker in future. 2. Persistent atrial fibrillation with well-controlled ventricular rate. Continue metoprolol, digoxin, and warfarin, and continue enoxaparin. 3. Left ventricular apical thrombus and left lower extremity deep venous thrombosis. Continue enoxaparin and warfarin. Goal is INR 2 to 3. 4. Sphingomonas sepsis from cholecystitis, extended spectrum beta lactamase acute cystitis, and Escherichia coli wound infection. Continue intravenous ertapenem. First day of negative blood culture was 02/27/2019. He has a peripherally inserted central catheter line. Considering his cardiac condition, no acute surgical intervention plan for his cholecystitis, which is likely source of bacteremia. 5. Disposition. Awaiting therapeutic INR and at that point, will consider discharging him. Plan of care discussed with the patient and his family at bedside. I explained to them about need for continuing current cardiac regimen, as well as close cardiology followup. I answered all of their questions. cc: Feliberto Rocha MD
--- NOTE | 2019-03-08 23:05 | INFECTIOUS DISEASE PROGRESS NO ---
DATE: 03/08/2019 PRESENT ILLNESS: The patient is being treated for a Sphingomonas bacteremia and an extended- spectrum [id number]-[id number] E. coli. He also has that same E. coli and an organism by the name of Vikella infecting his right leg. MEDICATIONS: This is day 9 of treatment with ertapenem being given in a dose of 1 g IV every 24 hours. OBJECTIVE: Vital signs: Temperature is 98.4 degrees, pulse 61, respirations 14, blood pressure 85/61. General: This is a fairly healthy-appearing, middle-aged male. He is in no acute distress. Head/eyes/ears/nose/throat: He can hear my spoken words and see near objects. He does not have any white patches on his tongue. Neck: No meningismus. Lungs: Clear to auscultation. Cardiovascular: Heart rate is irregular. Abdomen: Soft and nontender. Extremities: The wounds on the patient's legs are healing and almost completely gone. The patient has a PICC in his left arm. The site does not have any erythema or swelling. Neurologic: The patient is alert. He is able to walk. There is no tremor. LABORATORY AND X-RAY: There is no new radiographic study or laboratory study for today. ASSESSMENT AND PLAN: The patient is being treated for the bacteremia, urinary tract infection, and leg infections. The patient has completed 9 days of treatment with ertapenem and will require 5 more days. COMORBIDITIES: The patient has congestive heart failure and atrial fibrillation. cc: Ish Pickett MD
[2019-03-09 07:28] LABS: BASO# 0.07 X1000 (0.0-0.2); BASO% 1.5 % (0.0-0.8); EOS# 0.08 X1000 (0.0-0.7); EOS% 1.7 % (0.0-10.0); HEMATOCRIT 35.5 % (42.0-52.0); HEMOGLOBIN 11.6 g/dL (14.0-18.0); LYMPH# 1.98 X1000 (1.2-3.4); LYMPH% 42.1 % (20.5-51.1); MCH 28.2 PG (27-31); MCHC 32.7 g/dL (33-37); MCV 86.4 FL (81-99); MONO# 0.49 X1000 (0.11-0.59); MONO% 10.4 % (1.7-9.3); MPV 11.3 FL (7.4-10.4); NEUT# 2.08 X1000 (1.4-6.5); NEUT% 44.3 % (42.2-75.2); PLT 222 X1000 (130-400); RBC 4.11 XMIL (4.7-6.1); RDW 15.6 % (11.5-14.5)
[2019-03-09 07:34] LABS: INR 1.26; PROTIME 16.8 Seconds (11.0-16.0)
[2019-03-09 07:51] LABS: AGAP 9; BUN 9 mg/dL (8-22); CALCIUM 8.7 mg/dL (8.8-10.2); CHLORIDE 102 mmol/L (98-107); COSMO 272; CREATININE 0.7 mg/dL (0.7-1.2); ESTIMATED GFR > 60; GLUCOSE 86 mg/dL (70-104); MAGNESIUM 1.7 mg/dL (1.5-2.7); SODIUM 137 mmol/L (136-145); TCO2 26 mmol/L (25-35)
[2019-03-09] MEDS: COLCRYS PO SCH (08:42)
[2019-03-09] MEDS: ZYLOPRIM PO SCH (08:42)
[2019-03-09] MEDS: PERICOLACE PO SCH ×2 (08:43→21:47)
[2019-03-09] MEDS: PRINIVIL PO SCH (08:43)
[2019-03-09] MEDS: ISORDIL PO SCH ×3 (08:43→21:46)
[2019-03-09] MEDS: APRESOLINE PO SCH ×2 (08:43→15:33)
[2019-03-09] MEDS: LANOXIN PO SCH (08:44)
[2019-03-09] MEDS: ALDACTONE PO SCH (08:44)
[2019-03-09] MEDS: LOPRESSOR PO SCH ×3 (08:44→21:47)
[2019-03-09] MEDS: LOVENOX SUBQ SCH ×2 (08:45→21:47)
[2019-03-09] MEDS: LASIX PO SCH ×2 (08:45→21:46)
[2019-03-09] MEDS: ASPIRIN PO SCH (08:45)
[2019-03-09] MEDS ORDERED: COUMADIN PO ONE (12:19)
[2019-03-09] MEDS: COUMADIN PO SCH (21:46)
[2019-03-09] MEDS: INVANZ 1 GM/NS 1 GM/50 ML IVPB IV SCH (21:46)
--- NOTE | 2019-03-09 22:13 | PROGRESS NOTE ---
DATE: 03/09/2019 INTERVAL HISTORY: No acute events overnight. He complains of some itchy rash all over his body. He states that it was present when he was in [place] as well, but he has not seen a physician for it. 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 PHYSICAL EXAMINATION: vital signs: Temperature 98.9. His pulse is 60, respiratory rate 17, blood pressure 114/78. He is saturating 100% on room air. General: Does not appear in any acute distress. Well-built, -[place] man. No pallor, cyanosis, clubbing, or icterus. Air entry bilaterally equal. No wheeze, rhonchi, crackles. S1, S2 normal. No murmur, rub, or gallop. Irregularly irregular. Abdomen is soft, nontender. Negative hepatojugular reflux. Bilateral lower extremity edema extending up to midshin level. He is alert and oriented x3. Input and output is not charted properly. LABORATORY: Suggestive of normocytic anemia, normal platelet count, INR of 1.26. He does have normal kidney function. ASSESSMENT AND PLAN: 1. Acute systolic congestive heart failure on chronic systolic congestive heart failure with ejection fraction of 20%, likely because of ischemic cardiomyopathy. Nuclear medicine stress test had anteroapical scar. Continue oral Lasix, spironolactone, lisinopril, metoprolol, and outpatient Cardiology. I also added aspirin to his regimen. 2. Chronic atrial fibrillation with well-controlled ventricular rate at the moment. Continue metoprolol, digoxin. Continue enoxaparin bridging for warfarin. 3. Left ventricle apical thrombus and left lower extremity deep vein thrombosis involving femoral vein. Continue enoxaparin, warfarin, with goal INR of 2 to 3. 4. Sphingomonas sepsis from cholecystitis, extended spectrum beta-lactamase acute cystitis, and Escherichia coli wound infection. Continue intravenous ertapenem. The last day of antibiotics will be 03/12/2019, to complete a total of 14-day course. He has a PICC line. He will need outpatient surgery followup for his cholecystitis. 5. Disposition. Awaiting therapeutic INR. Apparently, I was informed that subcutaneous enoxaparin would be costly if we had to help him help with his medication. I am anticipating discharge once INR is more than 2 for at least 24 hours, some time next week. Plan of care discussed with him. His questions were answered. cc: Feliberto Rocha MD
[2019-03-10] MEDS: LOPRESSOR PO SCH ×3 (05:30→21:19)
[2019-03-10 07:32] LABS: INR 1.6; PROTIME 20.3 Seconds (11.0-16.0)
[2019-03-10] MEDS: LANOXIN PO SCH (09:25)
[2019-03-10] MEDS: ZYLOPRIM PO SCH (09:26)
[2019-03-10] MEDS: ASPIRIN PO SCH (09:26)
[2019-03-10] MEDS: LASIX PO SCH ×2 (09:26→21:19)
[2019-03-10] MEDS: LOVENOX SUBQ SCH ×2 (09:26→21:19)
[2019-03-10] MEDS: PERICOLACE PO SCH (09:27)
[2019-03-10] MEDS: ALDACTONE PO SCH (09:27)
[2019-03-10] MEDS: ISORDIL PO SCH ×3 (09:27→21:19)
[2019-03-10] MEDS: PRINIVIL PO SCH (09:28)
--- NOTE | 2019-03-10 13:37 | INFECTIOUS DISEASE PROGRESS NO ---
DATE: 03/10/2019 The patient had a Sphingomonas bacteremia. He also has metal in his mandible from fracture of it. The metal in his mandible could have become infected hematogenously with the Sphingomonas. Because of that, my treatment will be to complete the treatment with ertapenem which will be for 2 weeks and then the patient will be given a prescription for Keflex 500 mg p.o. every 8 hours for an additional 4 weeks to complete a total of a 6-week course of antibiotics for the Sphingomonas bacteremia. The reason why the patient will be treated for 6 weeks is as mentioned above, he has metal in his mandible, which could have become infected while the patient was bacteremic. cc: Ish Pickett MD MTDD
--- NOTE | 2019-03-10 14:07 | PROGRESS NOTE ---
DATE: 03/10/2019 INTERVAL HISTORY: No acute events. He received a 1 time additional dose of warfarin yesterday. His hydralazine was held because he has been hypotensive. I again discussed with him that it is important for him to get a regular doctor and then he should schedule an appointment with the regular doctor before I see him tomorrow as a task and he agrees to work on it. He denies any chest pain or shortness of breath. His allopurinol and colchicine were discontinued, though his uric acid level was high, to avoid polypharmacy and unsure of medication compliance. I will repeat his uric acid tomorrow and resume allopurinol accordingly. VITAL SIGNS: Temperature 97.8 degrees, pulse 56, respiratory rate 21, blood pressure 107/40. He is saturating 94% on room air. PHYSICAL EXAMINATION: General: Well-built, man, not in any acute distress. Oral cavity is moist. Air entry bilaterally equal. No wheeze, rhonchi, crackles. S1, S2 normal. No murmur or gallop. Heart rhythm is irregularly irregular. Abdomen is soft, nontender. Negative hepatojugular reflex. Bilateral lower extremity edema extending up to knee level, pitting. He is alert and oriented x3. LABS: Suggestive of no CBC or BMP today. His INR is 1.6. MICROBIOLOGY: No data. IMAGING: No new data. ASSESSMENT AND PLAN: 1. Acute systolic congestive heart failure on chronic systolic congestive heart failure with ejection fraction of 20%, likely because of ischemic cardiomyopathy. Nuclear medicine stress test had anteroapical scar which could have been related to left anterior descending lesion and embolic phenomenon. Continue current dose of oral Lasix, spironolactone, lisinopril, metoprolol, and outpatient cardiology followup. Also, continue his aspirin. 2. Chronic atrial fibrillation with well-controlled ventricular rate. Continue metoprolol, digoxin, warfarin with bridging with enoxaparin. He is also on isosorbide mononitrate for his essential hypertension and congestive heart failure. His hydralazine has been held. 3. Left ventricle apical thrombus and left lower extremity femoral vein deep venous thrombosis. Continue enoxaparin and warfarin bridging. Goal INR 2 to 3. 4. Sphingomonas sepsis from cholecystitis, extended spectrum beta-lactamase acute cystitis, and Escherichia coli wound infection. Continue intravenous ertapenem. The last day would be 03/12/2019 to complete a total of 14-day course. He has a peripherally inserted central catheter line and he will need outpatient surgery followup for cholecystitis. 5. Disposition. Awaiting therapeutic INR. Based on that, I will plan discharge. I will regroup with the care management team to see if we could give him enoxaparin injections for 4 to 5 days supply and consider discharging him tomorrow if he has already set up an appointment with his regular doctor. cc: Feliberto Rocha MD
[2019-03-10] MEDS: COUMADIN PO SCH (21:19)
[2019-03-10] MEDS: INVANZ 1 GM/NS 1 GM/50 ML IVPB IV SCH (21:19)
[2019-03-11 07:15] LABS: BASO# 0.11 X1000 (0.0-0.2); BASO% 2.8 % (0.0-0.8); EOS# 0.11 X1000 (0.0-0.7); EOS% 2.8 % (0.0-10.0); HEMATOCRIT 35.2 % (42.0-52.0); HEMOGLOBIN 11.4 g/dL (14.0-18.0); LYMPH# 1.92 X1000 (1.2-3.4); LYMPH% 48.2 % (20.5-51.1); MCH 28.1 PG (27-31); MCHC 32.4 g/dL (33-37); MCV 86.7 FL (81-99); MONO# 0.45 X1000 (0.11-0.59); MONO% 11.3 % (1.7-9.3); MPV 11.8 FL (7.4-10.4); NEUT# 1.39 X1000 (1.4-6.5); NEUT% 34.9 % (42.2-75.2); PLT 216 X1000 (130-400); RBC 4.06 XMIL (4.7-6.1); RDW 15.6 % (11.5-14.5); WBC 3.98 X1000 (4.8-10.8)
[2019-03-11 07:19] LABS: INR 2.03; PROTIME 24.5 Seconds (11.0-16.0)
[2019-03-11 07:37] LABS: AGAP 9; BUN 8 mg/dL (8-22); CHLORIDE 102 mmol/L (98-107); COSMO 273; CREATININE 0.7 mg/dL (0.7-1.2); ESTIMATED GFR > 60; GLUCOSE 85 mg/dL (70-104); MAGNESIUM 1.7 mg/dL (1.5-2.7); POTASSIUM 4.2 mmol/L (3.5-5.1); SODIUM 138 mmol/L (136-145); TCO2 27 mmol/L (25-35)
[2019-03-11] MEDS: LOPRESSOR PO SCH ×2 (09:00→16:10)
[2019-03-11] MEDS: ASPIRIN PO SCH (09:00)
[2019-03-11] MEDS: LANOXIN PO SCH (09:00)
[2019-03-11] MEDS: ZYLOPRIM PO SCH (09:00)
[2019-03-11] MEDS: PRINIVIL PO SCH (09:00)
[2019-03-11] MEDS: ISORDIL PO SCH ×3 (09:00→20:12)
[2019-03-11] MEDS: LOVENOX SUBQ SCH ×2 (09:01→20:12)
[2019-03-11] MEDS: ALDACTONE PO SCH (09:01)
[2019-03-11] MEDS: LASIX PO SCH ×2 (09:01→20:12)
--- NOTE | 2019-03-11 18:36 | PROGRESS NOTE ---
DATE: 03/11/2019 INTERVAL HISTORY: No acute events overnight. SUBJECTIVE: Patient states that he has been able to get in touch with and schedule appointment with regular doctor and he is supposed to go and see his regular doctor on Monday. We discussed about antibiotic management. I answered all of his questions. Currently he denies any chest pain or shortness of breath. VITALS: Temperature 97.3 degrees, pulse 65, respiratory rate 18, blood pressure 92/65 he is saturating 100% room air. PHYSICAL EXAMINATION: Not in any acute distress. Oral cavity is moist. Air entry bilaterally equal. No wheeze, rhonchi or crackles. S1, S2 normal. No murmur, rub or gallop. Irregularly irregular. Abdomen soft, nontender. No hepatojugular reflex. Negative Garland sign. Bilateral lower extremity edema extending up to knee level pitting. He is alert and oriented x3. LABS: Today suggestive of WBC of 3.9, hemoglobin 11.4, platelet of 216,000. INR of 2.03. Electrolytes are within normal limit. Blood culture did not have any growth till date which was drawn on February 27 which was the 1st day of negative blood cultures. ASSESSMENT AND PLAN: 1. Acute systolic congestive heart failure on chronic systolic congestive heart failure with ejection fraction of 20% likely because of probably an embolic phenomena involving left anterior descending. Nuclear medicine stress test had anteroapical scar. Continue current dose of Lasix, spironolactone, lisinopril, metoprolol and outpatient Cardiology follow. I have added him on aspirin as well. 2. Chronic atrial fibrillation with well-controlled ventricular rate. Continue metoprolol, digoxin, warfarin with bridging of enoxaparin. He is also on isosorbide for essential hypertension, congestive heart failure. I have held his hydralazine considering episodes of hypotension and he may go home without hydralazine . 3. Left ventricular apical thrombus and left lower extremity femoral vein deep venous thrombosis. Continue enoxaparin and warfarin bridge, goal INR is 2 to 3. 4. Sphingomonas sepsis from cholecystitis, extended spectrum beta-lactamase acute cystitis, Escherichia coli wound infection, continue intravenous ertapenem, his last dose of ertapenem is going to be tomorrow evening after which peripherally inserted central catheter line would be removed and he should go home on home oral antibiotics that infectious disease has already prescribed. 5. Disposition. At this point we will repeat INR tomorrow, if INR is therapeutic we will stop enoxaparin and discharge him on oral warfarin. He will also get his last dose of ertapenem tomorrow after which we will remove the PICC line. He will be going home on oral antibiotics and oral warfarin. He already has a primary care provider scheduled appointment on Monday, after that he is planning to go back to [facility] in 4 to 5 days time where his care should be continued. Plan of care extensively discussed with him and his questions have been answered. I have previously explained to him about congestive heart failure, low ejection fraction, risk of cardiac arrhythmia as well as sudden cardiac and need for taking medications regularly. I had extensively discussed this plan with his multiple family members on multiple occasions as well . cc: Feliberto Rocha MD
--- NOTE | 2019-03-11 19:17 | INFECTIOUS DISEASE PROGRESS NO ---
DATE: 03/11/2019 PRESENT ILLNESS: Mr. Dunbar has as a Sphingomonas bacteremia, an Escherichia coli urinary tract infection which is extended spectrum beta lactamase producing, and lower extremity wounds which are dry and mostly healed. MEDICATIONS: Today is day twelve of ertapenem 1 g IV every 24 hours. PHYSICAL EXAMINATION: Vital Signs: Temperature is 97.8 degrees, pulse rate 99, respiratory rate 18, blood pressure 137/96. O2 saturation is 98% on room air. General: This is a chronically ill- appearing, middle-aged gentleman who is sitting up in bed, currently in no acute distress. HEENT: Atraumatic, normocephalic. Oral mucous membranes are pink and moist. Conjunctivae are pink. Neck: Supple. Trachea is midline. Cardiovascular: Irregularly irregular. Atrial fibrillation/atrial flutter on the monitor. Respiratory: Lung sounds are bilaterally clear to auscultation with no work of breathing noted. Abdomen: Soft, round, nontender. Nondistended. Bowel sounds are active. Extremities: He does have a very trace pretibial edema noted bilaterally with almost complete resolution of healing to the lower extremity wounds with only some mild dry eschar noted. There is also a PICC line to the left upper arm. That site is without edema, erythema, or drainage. Neurologic: He is awake, alert, oriented but somewhat forgetful. He is able to move around in the bed without assistance. LABORATORY AND X-RAY: Today his white count is 3.98, hemoglobin 11.4, platelet count 216,000, absolute neutrophil count is 1390. Creatinine is 0.7. Estimated GFR is greater than 60. Previously his urine culture grew Escherichia coli which was extended spectrum beta lactamase producing and his blood grew Sphingomonas paucimobilis. His blood cultures have been sterile since 02/27/2019. Also previously, his right leg grew an Escherichia coli as well as a Raoultella planticola. No imaging reports today. ASSESSMENT AND PLAN: Mr. Dunbar is being treated for a bacteremia and a urinary tract infection. His leg wounds have almost complete resolution at this point. Because of mandibular metal noted bilaterally from previous jaw surgery, he is going to need 6 weeks of treatment for his bacteremia. The plan is for his last dose of IV ertapenem to be given tomorrow evening at 1800, after which time his PICC line will be discontinued. He will then need 4 weeks of treatment with Keflex 500 mg by mouth every 8 hours. There is a prescription on the front of his chart for when he is discharged. His plan is to travel back to [facility] a few days after he is discharged from the hospital. I have talked to him about the need to finish the Keflex every 8 hours until it is gone, in order to complete his treatment for the blood infection. He stated understanding and questions were answered. At this point we will sign off the case, but will be available on an as needed basis. These plans have been discussed with and recommended by Dr. Pickett. COMORBIDITIES: Congestive heart failure and atrial fibrillation. Dictated by ALLA Seo for Ish Pickett MD cc: Ish Pickett MD MTDNadia
[2019-03-11] MEDS: INVANZ 1 GM/NS 1 GM/50 ML IVPB IV SCH (20:11)
[2019-03-11] MEDS: COUMADIN PO SCH (20:12)
[2019-03-12] MEDS: LOPRESSOR PO SCH ×3 (00:45→17:07)
[2019-03-12 07:03] LABS: INR 2.24; PROTIME 26.4 Seconds (11.0-16.0)
[2019-03-12] MEDS: PRINIVIL PO SCH (10:15)
[2019-03-12] MEDS: ISORDIL PO SCH ×3 (10:15→17:07)
[2019-03-12] MEDS: LOVENOX SUBQ SCH (10:15)
[2019-03-12] MEDS: LASIX PO SCH (10:15)
[2019-03-12] MEDS: ALDACTONE PO SCH (10:15)
[2019-03-12] MEDS: ASPIRIN PO SCH (10:16)
[2019-03-12] MEDS: LANOXIN PO SCH (10:16)
[2019-03-12 14:00] VITALS: BP 95/64
[2019-03-12] MEDS: APRESOLINE PO SCH (17:07)
[2019-03-12] MEDS ORDERED: INVANZ 1 GM/NS 1 GM/50 ML IVPB IV ONE (18:00)
--- NOTE | 2019-03-12 22:33 | DISCHARGE SUMMARY ---
ADMISSION DATE: 02/22/2019 DISCHARGE DATE: 03/12/2019 DIAGNOSES: 1. Acute systolic congestive heart failure in the setting of chronic systolic congestive heart failure with an ejection fraction of 20%. Nuclear medicine stress test showed anterior apical scar. 2. Chronic atrial fibrillation with rate controlled on metoprolol, digoxin, warfarin. 3. Left ventricular apical thrombus with left lower extremity femoral deep vein thrombosis on warfarin. 4. Sphingomonas sepsis from cholecystitis. Extended spectrum beta lactamase acute cystitis. The patient had a PICC line placed, received ertapenem with the last dose being 03/11/2019. He will be discharged on Keflex 500 mg g p.o. q.8 hours x4 weeks. Due to the patient having mandibular metal, he will require 6 weeks of treatment. Of note, he did have 2 weeks of treatment in the hospital with IV ertapenem, the following 4 will be with Keflex as stated above. 5. Abnormal HIDA scan. The patient was asymptomatic throughout the hospitalization. He was followed by General Surgery. Surgery did not suspect acute cholecystitis or complications associated with gallstones. Due to his multiple comorbidities he was a high risk for surgery; therefore, he was watched. 6. Pulmonary hypertension on echocardiogram with pressures estimated at 50/30 mmHg. CONSULTS: 1. Dr. Kareem Salazar, Cardiology. 2. Dr. Ish Pickett, Infectious Disease. 3. Dr. Nas Denis of Surgery. DIAGNOSTICS: 1. On 02/22/2019, chest x-ray revealed cardiomegaly with right lower lobe pneumonia and right pleural effusion. 2. On 02/23/2019, echocardiogram revealed significantly impaired left ventricular systolic function with ejection fraction of 20% with evidence of an apical thrombus measuring 2.9 x 2.9 cm, pulmonary hypertension estimated at 50/30 mmHg, moderate degree of mitral and tricuspid regurg, mild aortic regurg, significantly enlarged atria. 3. On 02/23/2018, extremity venous study. Bilateral lower extremities revealed acute DVT involving the distal superficial femoral vein, popliteal vein and small veins below the left knee. 4. Abdominal ultrasound revealed possibility of cholecystitis cannot be excluded. There is sludge in the gallbladder, hepatic steatosis. 5. CT of the chest revealed an eschar, a large right pleural effusion, atelectasis versus pneumonia in the right lower lobe. 6. Renal CT revealed right pleural effusion and basilar atelectasis, constipation. No evidence of urolithiasis or obstructive uropathy. 7. HIDA scan revealed abnormal exam with no filling of the gallbladder at 90 minutes. 8. Myocardial perfusion scan on 03/04/2019 revealed abnormal rest electrocardiogram with a nonspecific response to Lexiscan, abnormal post-stress myocardial perfusion scan. There is scintigraphic suggestion of an apical anterior inferior scar, transmural limited, plus attenuation of the inferior wall, impaired left ventricle systolic function with a post-stress 43%. Focal wall motion abnormality is noted. MICROBIOLOGY: 1. Right leg culture revealed Raoultella planticola and E coli. 2. Blood cultures on 02/22/2019 x 2 revealed Sphingomonas paucimobilis. 3. Urine culture 02/22/2019 revealed ESBL positive E coli. 4. Blood cultures times 2 on 02/27/2019 revealed no growth after 5 days. HOSPITAL COURSE: Mr. Dunbar presented to the emergency room complaining of lower extremity edema. He was found to be in acute systolic and diastolic heart failure with an ejection fraction of 20%, as well as having a left apical thrombus. Cardiology was consulted and did follow throughout the hospitalization, he received basic heart failure management with lisinopril, spironolactone, digoxin, hydralazine, isosorbide, and Lasix, which he has tolerated. He will be discharged on Lasix, spironolactone, lisinopril and metoprolol. He was in persistent atrial fibrillation throughout the hospitalization. He did have episodes of atrial fibrillation, RVR. We continued his metoprolol, digoxin and warfarin. He was bridged with Lovenox. Left ventricular apical thrombus was found. Warfarin was begun. He was bridged with Lovenox until today. His INR was 2.2 and target is 2.3; therefore, we were able to discontinue the Lovenox and discharge him on 7.5 mg p.o. at bedtime. He was found to have Sphingomonas sepsis from presumed cholecystitis as well as ESBL positive acute cystitis and E coli wound infection. He was given 2 weeks of IV ertapenem per PICC line. This was discontinued and he will continue with 4 weeks of Keflex to total 6 weeks of antibiotic coverage as he has mandibular metal. He will be followed by Dr. Ish Pickett on an outpatient basis for this. He did have an abnormal HIDA scan. Dr. Nas Denis and Dr. Alon Avalos and General Surgery did follow with the patient. As he was asymptomatic, he continued with antibiotics. He did he did not develop any right upper quadrant pain. Due to his comorbidities, Dr. Denis felt that he was too high of a risk for surgery in the setting of being asymptomatic; therefore, he will follow him on an outpatient basis. DISCHARGE VITAL SIGNS: Blood pressure is 101/80 with a heart rate of 63, respirations 18, temperature 98 degrees oral with room air saturations 100%. DISCHARGE MEDICATIONS: 1. Lisinopril 5 mg p.o. daily. 2. Metoprolol 25 mg p.o. q.8 hours. 3. Lasix 40 mg p.o. b.i.d. 4. Lanoxin 125 mcg p.o. daily. 5. Keflex 500 mg p.o. q.8 hours x4 weeks. 6. Isosorbide dinitrate 10 mg p.o. at 9, 1 and 5. 7. Colchicine 0.3 mg p.o. b.i.d. 8. Aspirin 81 mg p.o. daily. 9. Apresoline 10 mg p.o. at 9, 1 and 5. 10. Spironolactone 25 mg p.o. daily. 11. Warfarin 7.5 mg p.o. at bedtime FOLLOWUP: 1. Dr. Ish Pickett 03/13/2019 at [address] Mary Cleaning 03/13/2019 at [address] Salazar. He needs to be seen in 1 month. DISPOSITION: He is being discharged home and stable condition with family members present. DISCHARGE INSTRUCTIONS: He has been instructed to call to be seen sooner or return to the ER for any syncope, dizziness, chest pain, palpitations, shortness of breath, cough, temperature greater than 101, any chills or night sweats, any black or bloody vomitus or stools, any bruising, bleeding gums, or for any questions or concerns that he may have. He is being discharged home in stable condition with family members. TIME SPENT: This is a greater than 30 minute discharge. Dictated by ALLA Monson for Charli Moses MD cc: ALLA Monson MD Lindsay Smith
== END 2019-03-12 18:48 | disposition home or self-care (01) | DRG 871 ==
LOC: ED 18:18 → SUATTDRO 18:32 → 3S 02-23 00:08 → SUATTDRO 02-23 00:08 → 3N 03-06 10:18
PROVIDERS: ATTEND Internal Medicine
CPT/HCPCS: 36569; 71010; 71045; 71250; 74176; 76700; 78226; 78452; 80048; 80053; 80069; 81001; 82550; 82728; 82805; 83540; 83550; 83605; 83735; 83880; 83883; 84132; 84145; 84155; 84165; 84484; 84550; 85025; 85379; 85610; 85651; 85730; 86140; 86850; 86900; 86901; 87040; 87070; 87077; 87088; 87186; 93005; 93010; 93017; 93306; 93970; 94760; 94761; 96365; 96375; 99285; A9270; A9500; A9537; J0696; J1335; J1644; J1650; J1940; J2185; J2785; J3475; J7050